=== PATIENT | female | born 1950 | race African-American/Black ===

== ENCOUNTER 2019-02-05 23:17 | Inpatient (IN) | payer MEDICARE ==
[~2019-02-05] VITALS: Ht 160 cm; Wt 88.6 kg
[2019-02-05] MEDS ORDERED: ASPIRIN 81 MG TAB.CHEW PO ONE (23:45)
--- NOTE | 2019-02-06 00:05 | PHYS DOC ---
Adult General Chief Complaint Chief Complaint: CHEST PAIN HPI HPI 68-year-old female presents with chest pain. The patient was sleeping when she woke with central chest pressure and feeling like her heart was beating very fast. This occurred around 10:30 PM. It is now 11:45. The patient states the pain was a 10 out of 10 at the time, but has subsided to a 4 out of 10. He does not remember if she was short of breath. She denies diaphoresis. She checked her blood sugar before she came to the ER and it was over 300. She gave herself 45 units of insulin. The patient has a history of hyperlipidemia, hypertension, diabetes insulin-dependent. No cardiac history. No stress test or cardiac catheter within the last year. Patient denies fever or chills. Review of Systems Review of Systems Constitutional: Denies fever or chills [] Eyes: Denies change in visual acuity, redness, or eye pain [] HENT: Denies nasal congestion or sore throat [] Respiratory: Denies cough or shortness of breath [] Cardiovascular: No additional information not addressed in HPI [] GI: Denies abdominal pain, nausea, vomiting, bloody stools or diarrhea [] : Denies dysuria or hematuria [] Musculoskeletal: Denies back pain or joint pain [] Integument: Denies rash or skin lesions [] Neurologic: Denies headache, focal weakness or sensory changes [] Endocrine: Denies polyuria or polydipsia [] All other systems were reviewed and found to be within normal limits, except as documented in this note. Current Medications Current Medications Current Medications Medications (Trade) Dose Ordered Sig/[facility] Start Time Stop Time Status Last Admin Dose Admin Aspirin (Children'S Aspirin) 324 mg 1X ONCE 02/05/19 23:45 02/05/19 23:46 UNV Allergies Allergies Allergies Uncoded Allergies Type Severity Reaction Last Updated Verified ANTIBIOTIC Allergy Unknown 01/15/15 Physical Exam Physical Exam Constitutional: Well developed, morbid obesity, well nourished, no acute distress, non-toxic appearance. [] HENT: Normocephalic, atraumatic, bilateral external ears normal, oropharynx moist, no oral exudates, nose normal. [] Eyes: PERRLA, EOMI, conjunctiva normal, no discharge. [] Neck: Normal range of motion, no tenderness, supple, no stridor. [] Cardiovascular:Heart rate regular rhythm, no murmur [] Lungs & Thorax: Bilateral breath sounds clear to auscultation [] Abdomen: Bowel sounds normal, soft, no tenderness, no masses, no pulsatile masses. [] Skin: Warm, dry, no erythema, no rash. [] Back: No tenderness, no CVA tenderness. [] Extremities: No tenderness, no cyanosis, no clubbing, ROM intact, no edema. [] Neurologic: Alert and oriented X 3, normal motor function, normal sensory function, no focal deficits noted. [] Psychologic: Affect normal, judgement normal, mood normal. [] EKG EKG Sinus rhythm, rate 97, normal axis, no ST elevations or depressions.[] Radiology/Procedures Radiology/Procedures [] Impressions: Chest x-ray preliminary interpretation: No acute cardiopulmonary process. Course & Med Decision Making Course & Med Decision Making Pertinent Labs and Imaging studies reviewed. (See chart for details) The patient's EKG is unremarkable. Her troponin is negative. Her labs are significant for an elevated blood sugar and a Cr of 1.6. We will give her 1L of normal saline and then reassess her BS. Her heart score is 5. I have advised the patient that she should be admitted to hospital for troponin trending and further management of her diabetes. She has reluctantly agreed. I spoke with Dr. Herrera and he has accepted the patient for admission. [] Dragon Disclaimer Dragon Disclaimer This electronic medical record was generated, in whole or in part, using a voice recognition dictation system. The HEART Score for CP Pts HEART Score for Chest Pain: HEART Score for Chest Pain Response (Comments) Value History Moderately Suspicious 1 ECG Normal 0 Age > 65 2 Risk Factors >3 Risk Factors or Hx CAD 2 Troponin < Normal Limit 0 Total 5 Risk Factors: Risk Factors: DM, Current or recent (<one month) smoker, HTN, HLP, family history of CAD, obesity. Risk Scores: Score 0 - 3: 2.5% MACE over next 6 weeks - Discharge Home Score 4 - 6: 20.3% MACE over next 6 weeks - Admit for Clinical Observation Score 7 - 10: 72.7% MACE over next 6 weeks - Early Invasive Strategies Departure Departure: Impression: Primary Impression: Chest pain Additional Impression: Hyperglycemia due to type 2 diabetes mellitus Disposition: ADMITTED INPATIENT Admitting Physician: Rosa Herrera Condition: STABLE Referrals: MAXINE ECKERT MD (PCP) Problem Qualifiers Primary Impression: Chest pain Chest pain type: precordial pain Qualified Codes: R07.2 - Precordial pain Additional Impression: Hyperglycemia due to type 2 diabetes mellitus 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
[2019-02-06 00:10] LABS: BASO % 1 % (0-3); EOS # 0.7 x10^3/uL (0.0-0.7); EOS % 6 % (0-3); HEMATOCRIT 38.6 % (36.0-47.0); HEMOGLOBIN 12.9 g/dL (12.0-15.5); LYMPH # 3.3 x10^3/uL (1.0-4.8); LYMPH % 31 % (24-48); MEAN CORPUSCULAR HEMOGLOBIN 32 pg (25-35); MEAN CORPUSCULAR HGB CONC 34 g/dL (31-37); MEAN CORPUSCULAR VOLUME 95 fL (79-100); MONO # 1.1 x10^3/uL (0.0-1.1); MONO % 10 % (0-9); NEUT # 5.4 x10^3uL (1.8-7.7); NEUT % 52 % (31-73); PLATELET COUNT 303 x10^3/uL (140-400); RED BLOOD COUNT 4.05 x10^6/uL (3.50-5.40); RED CELL DISTRIBUTION WIDTH 13.3 % (11.5-14.5); WHITE BLOOD COUNT 10.5 x10^3/uL (4.0-11.0)
[2019-02-06 00:34] LABS: ALBUMIN 3.7 g/dL (3.4-5.0); ALBUMIN/GLOBULIN RATIO 0.9 (1.0-1.7); CALCIUM 9.9 mg/dL (8.5-10.1); CREATININE 1.6 mg/dL (0.6-1.0); POTASSIUM 4.1 mmol/L (3.5-5.1); TOTAL BILIRUBIN 0.2 mg/dL (0.2-1.0); TOTAL PROTEIN 7.8 g/dL (6.4-8.2)
[2019-02-06] MEDS ORDERED: IV NORMAL SALINE 1,000ML 1,000 ML IV ONE (00:45)
[2019-02-06] MEDS ORDERED: NITROGLYCERIN SUBLINGUAL 0.4 MG BOTTLE OF 25. SL PRN (01:00)
[2019-02-06] MEDS ORDERED: ONDANSETRON PF 4 MG/2 ML VIAL. IV PRN (01:00)
[2019-02-06] MEDS ORDERED: INSULIN REGULAR 100 UNIT/ML 3ML VIAL. IV ONE (02:30)
[2019-02-06] MEDS ORDERED: INSULIN LISPRO 300 UNITS/3 ML VIAL. SQ SCH (02:45)
--- NOTE | 2019-02-06 02:45 | NUR ---
ADMISSION: The patient, FAITH BUSTILLOS, 68 y/o, F admitted by MARY HOPKINS MD, was given written information regarding hospital policies, unit procedures and contact persons. Pt arrived to room 123 via gurney, accompanied [facility], granddaughter, and nursing sup. Pt able to amb from gurney to bed, steady gait noted. Pt c/o being woken up due to central chest pain that radiated through to her bilateral shoulder blades, rated 8/10. Denies current CP. Pt also a type II diabetic with a blood glucose sensor applied to her left upper arm, reports blood sugars have been elevated in the 200-300's range over the past day, despite increased insulin admin. Pt denies and N/V/D or recent illness. Pt reports she has followed with Dr. Jiang, [facility]'s cardiology, but has not been in over a year. Will consult [facility] Cardiology in AM. Reviewed PMH and home meds with pt. Declines flu vaccine. POC and unit routines discussed, pt v/u. Call light in reach. Valuables were checked and logged. Left in room with patient.
[2019-02-06 02:53] VITALS: BP 138/76
[2019-02-06 03:06] LABS: BILIRUBIN,URINE NEG (NEG); CLARITY,URINE CLEAR; COLOR,URINE YELLOW; GLUCOSE,URINE 500 mg/dL (NEG); NITRITE,URINE NEG (NEG); UROBILINOGEN,URINE 0.2 mg/dL (0.2 mg/dL)
[2019-02-06 03:07] LABS: BACTERIA,URINE 0 /HPF (0-FEW); RBC,URINE 0 /HPF (0-2); SQUAMOUS EPITHELIAL CELL,UR OCC /LPF
[2019-02-06] MEDS ORDERED: DEXTROSE 50% 25 GM / 50ML DISP.SYRIN. IV PRN (03:15)
[2019-02-06] MEDS ORDERED: ASPI-630 PO (03:21)
[2019-02-06] MEDS ORDERED: MAGN250T9 PO (03:21)
[2019-02-06] MEDS ORDERED: LISI40TA PO (03:21)
[2019-02-06] MEDS ORDERED: ATOR40TA59 PO (03:21)
[2019-02-06] MEDS ORDERED: OMEG-33 PO (03:21)
[2019-02-06] MEDS ORDERED: MV,1TABL3 PO (03:21)
[2019-02-06] MEDS ORDERED: CARV6.25 PO (03:21)
[2019-02-06] MEDS ORDERED: AMLO10TA8 PO (03:21)
[2019-02-06] MEDS ORDERED: INSULIN LISPRO 300 UNITS/3 ML VIAL. SQ ONE (03:30)
[2019-02-06] MEDS ORDERED: INSU100V31 SQ (03:51)
[2019-02-06] MEDS ORDERED: INSU100I30 SQ (03:51)
[2019-02-06 05:45] VITALS: BP 137/69
--- NOTE | 2019-02-06 06:12 | RAD ---
EXAM: AP View of the chest DATE: 02/05/2019 11:37 PM INDICATION: Pain, injury COMPARISON: No Prior FINDINGS: The heart is not enlarged. Mediastinal and hilar contours are normal. No focal parenchymal airspace opacity. No pleural effusion or pneumothorax. IMPRESSION: 1. No radiographic evidence for acute cardiopulmonary process. Electronically signed by: Kael Juarez MD (02/06/2019 6:09 AM) [facility]
--- NOTE | 2019-02-06 06:17 | NUR ---
Cardiology consult called to Dr. Alvarenga. L/M with answering service, awaiting call back.
--- NOTE | 2019-02-06 07:53 | PDOC2 ---
MADELINE PARRA NURSES ASSISTANT 02/06/19 0753: CARDIAC CONSULT DATE OF CONSULT Date Of Consult DATE: 02/06/19 TIME: 07:49 REASON FOR CONSULT Reason for Consult Chest pain REFERRING PHYSICIAN Referring Physician Dr. Herrera SOURCE Source: Chart review, Patient HPI History of Present Illness This is a 68 yo female who presented secondary to central chest pain and palpitations. Patient reports she went to bed last night around 9pm. Woke up about 10:30 with pressure in her central chest. Felda like her was was beating fast and it was "going to burst". Pain was also across her back and in her bilateral shoulder. Associated with nausea. No shortness of breath, diaphoresis, or dizziness. No recent ROSE or chest pain upon exertion. Has had URI/cough recently. Pain resolved after about 45 minutes without intervention and has not returned. No h/o CAD. Has had a stress test previously, but has been many years prior. PAST MEDICAL HISTORY Cardiovascular: HTN, hyperipidemia Heme/Onc: Cancer (breast ) Musculoskeletal: Osteoarthritis Renal/: Chronic renal insuff Endocrine: Diabetes PAST SURGICAL HISTORY Past Surgical History: No pertinent history FAMILY HISTORY Family History: Coronary Artery Disease (son), Diabetes, Hypertension SOCIAL HISTORY Smoke: No ALCOHOL: none Drugs: None Lives: with Family CURRENT MEDICATIONS Current Medications Current Medications Aspirin (Children'S Aspirin) 324 mg 1X ONCE PO Last administered on 02/06/19at 00:40; Start 02/05/19 at 23:45; Stop 02/06/19 at 00:23; Status DC Sodium Chloride 1,000 ml @ 1,000 mls/hr 1X ONCE IV Last administered on 02/06/19at 00:51; Start 02/06/19 at 00:45; Stop 02/06/19 at 01:44; Status DC Ondansetron HCl (Zofran) 4 mg PRN Q4HRS PRN IV NAUSEA/VOMITING; Start 02/06/19 at 01:00; Stop 02/07/19 at 00:59 Nitroglycerin (Nitrostat) 0.4 mg PRN Q5MIN PRN SL CHEST PAIN; Start 02/06/19 at 01:00; Stop 02/07/19 at 00:59 Insulin Human Regular (HumuLIN R VIAL) 20 unit 1X ONCE IV ; Start 02/06/19 at 02:30; Stop 02/06/19 at 02:37; Status DC Insulin Human Lispro (HumaLOG) 20 units 1X SQ Last administered on 02/06/19at 02:38; Start 02/06/19 at 02:45; Stop 02/06/19 at 03:28; Status DC Dextrose (Dextrose 50%-Water Syringe) 12.5 gm PRN Q15MIN PRN IV SEE COMMENTS; Start 02/06/19 at 03:15 Insulin Human Lispro (HumaLOG) 20 units 1X ONCE SQ ; Start 02/06/19 at 03:30; Stop 02/06/19 at 03:31; Status DC Amlodipine Besylate (Norvasc) 10 mg DAILY PO ; Start 02/06/19 at 09:00 Aspirin (Children'S Aspirin) 162 mg DAILYWBKFT PO ; Start 02/06/19 at 08:00 Carvedilol (Coreg) 6.25 mg BIDWMEALS PO ; Start 02/06/19 at 08:00 Insulin Human Lispro (HumaLOG) 40 units TIDWMEALS SQ ; Start 02/06/19 at 08:00 Non-Formulary Medication (Insulin Degludec (Tresiba Flextouch U-100)) 120 unit QHS SQ ; Start 02/06/19 at 21:00; Status UNV Magnesium Oxide (Magnesium Oxide) 200 mg BID PO ; Start 02/06/19 at 09:00 Multivitamins/ Calcium (Thera-M Plus) 1 tab DAILY PO ; Start 02/06/19 at 09:00 Atorvastatin Calcium (Lipitor) 40 mg QHS PO ; Start 02/06/19 at 21:00 Lisinopril (Prinivil) 40 mg DAILY PO ; Start 02/06/19 at 09:00 Fish Oil (Fish Oil) 1,000 mg DAILY PO ; Start 02/06/19 at 09:00 Active Scripts Active Reported Tresiba Flextouch U-100 (Insulin Degludec) 100 Unit/1 Ml Insuln.pen 120 Unit SQ QHS Novolog (Insulin Aspart) 100 Unit/1 Ml Vial 40 Unit SQ TIDWMEALS Aspirin 81 Mg Tab.chew 162 Mg PO DAILY Mcdonough 3 1,000 Mg Softgel (Mcdonough-3 Fatty Acids/Fish Oil) 1 Each Capsule 1 Each PO DAILY Geritol Complete Tablet (Mv, Min #36/Iron,Carbonyl/Fa) 1 Each Tablet 1 Each PO DAILY Magnesium Oxide 250 Mg Tablet 1 Tab PO BID 30 Days Atorvastatin Calcium 40 Mg Tablet 1 Tab PO QHS Coreg (Carvedilol) 6.25 Mg Tablet 6.25 Mg PO BIDWMEALS Lisinopril 40 Mg Tablet 1 Tab PO DAILY Amlodipine Besylate 10 Mg Tablet 1 Tab PO DAILY ALLERGIES Allergies: Coded Allergies: hydromorphone (Verified Allergy, Severe, HALUC, 02/06/19) HALUCINATIONS ROS Review of Systems 14 point ROS conducted with pertinent positives noted above in HPI. PHYSICAL EXAM General: Alert, Oriented X3, Cooperative, No acute distress HEENT: Atraumatic, Mucous membr. moist/pink Lungs: Clear to auscultation, Normal air movement Heart: Regular rate Abdomen: Soft, No tenderness Extremities: No edema, Normal pulses Skin: No rashes, No breakdown Neuro: Normal speech, Sensation intact Psych/Mental Status: Mental status NL, Mood NL MUSCULOSKELETAL: Osteoarthritic changes both hands VITALS Vital Signs Vital Signs Date Time Temp Pulse Resp B/P (MAP) Pulse Ox O2 Delivery O2 Flow Rate FiO2 02/06/19 05:45 97.7 89 18 137/69 (91) 96 Room Air LABS LABS Laboratory Tests Test 02/05/19 23:40 02/06/19 00:49 02/06/19 01:45 02/06/19 03:15 White Blood Count 10.5 x10^3/uL (4.0-11.0) Red Blood Count 4.05 x10^6/uL (3.50-5.40) Hemoglobin 12.9 g/dL (12.0-15.5) Hematocrit 38.6 % (36.0-47.0) Mean Corpuscular Volume 95 fL (79-100) Mean Corpuscular Hemoglobin 32 pg (25-35) Mean Corpuscular Hemoglobin Concent 34 g/dL (31-37) Red Cell Distribution Width 13.3 % (11.5-14.5) Platelet Count 303 x10^3/uL (140-400) Neutrophils (%) (Auto) 52 % (31-73) Lymphocytes (%) (Auto) 31 % (24-48) Monocytes (%) (Auto) 10 % (0-9) Eosinophils (%) (Auto) 6 % (0-3) Basophils (%) (Auto) 1 % (0-3) Neutrophils # (Auto) 5.4 x10^3uL (1.8-7.7) Lymphocytes # (Auto) 3.3 x10^3/uL (1.0-4.8) Monocytes # (Auto) 1.1 x10^3/uL (0.0-1.1) Eosinophils # (Auto) 0.7 x10^3/uL (0.0-0.7) Basophils # (Auto) 0.0 x10^3/uL (0.0-0.2) Sodium Level 139 mmol/L (136-145) Potassium Level 4.1 mmol/L (3.5-5.1) Chloride Level 101 mmol/L (98-107) Carbon Dioxide Level 25 mmol/L (21-32) Anion Gap 13 (6-14) Blood Urea Nitrogen 28 mg/dL (7-20) Creatinine 1.6 mg/dL (0.6-1.0) Estimated GFR (Cockcroft-Gault) 39.0 BUN/Creatinine Ratio 18 (6-20) Glucose Level 280 mg/dL (70-99) Calcium Level 9.9 mg/dL (8.5-10.1) Total Bilirubin 0.2 mg/dL (0.2-1.0) Aspartate Amino Transf (AST/SGOT) 27 U/L (15-37) Alanine Aminotransferase (ALT/SGPT) 60 U/L (14-59) Alkaline Phosphatase 99 U/L (46-116) Troponin I Quantitative < 0.017 ng/mL (0-0.055) 0.047 ng/mL (0-0.055) PN-Yhs-Y-Type Natriuretic Peptide 25 pg/mL (0-124) Total Protein 7.8 g/dL (6.4-8.2) Albumin 3.7 g/dL (3.4-5.0) Albumin/Globulin Ratio 0.9 (1.0-1.7) Glucose (Fingerstick) 294 mg/dL (70-99) Urine Collection Type Unknown Urine Color Yellow Urine Clarity Clear Urine pH 5.5 Urine Specific [place] 1.015 Urine Protein 100 mg/dl (NEG-TRACE) Urine Glucose (UA) 500 mg/dL (NEG) Urine Ketones (Stick) Neg mg/dL (NEG) Urine Blood Trace (NEG) Urine Nitrite Neg (NEG) Urine Bilirubin Neg (NEG) Urine Urobilinogen Dipstick 0.2 mg/dL (0.2 mg/dL) Urine Leukocyte Esterase Trace (NEG) Urine RBC 0 /HPF (0-2) Urine WBC 1-4 /HPF (0-4) Urine Squamous Epithelial Cells Occ /LPF Urine Bacteria 0 /HPF (0-FEW) Test 02/06/19 05:38 02/06/19 07:34 Glucose (Fingerstick) 250 mg/dL (70-99) 250 mg/dL (70-99) ASSESSMENT/PLAN Assessment/Plan 1. Chest pain, mixed features. Second trop mildly elevated at 0.047. 2. Palpitations; no tachyarrhythmias noted on tele thus far 3. Hypertension 4. Hyperlipidemia 5. Diabetes, II 6. CKD Recommendations Trend trop Lipids, TSH Echo to assess LV systolic function Needs further ischemic workup given symptomatology and risk factors. Would prefer less invasive approach. Will make further recommendations pending 3rd troponin and echo. BONIFACIO ROQUE MD 02/06/19 1912: CARDIAC CONSULT ASSESSMENT/PLAN Assessment/Plan Pt. seen and examined. 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 68 y.o woman presenting with chest pain with mixed features as noted above. Exam wnl. Echo wnl. EKG is non-ischemic Trop is mildly elevated in the setting of HTN and CKD. In light of above low risk findings, will plan for expedited outpt ischemic evaluation. Will start pt. on metoprolol, asa, imdur and statin therapy. Discussed alarm findings with patient and reasons to return to ER. MADELINE PARRA APRN Feb 06, 2019 07:53 BONIFACIO ROQUE MD Feb 06, 2019 19:12
[2019-02-06] MEDS ORDERED: ASPIRIN 81 MG TAB.CHEW PO SCH (08:00)
[2019-02-06] MEDS: CARVEDILOL 6.25 MG TABLET PO SCH ×2 (08:08→17:18)
[2019-02-06] MEDS: INSULIN LISPRO 300 UNITS/3 ML VIAL. SQ SCH ×3 (08:17→17:29)
[2019-02-06] MEDS ORDERED: MULTIVITAMIN with MINERAL TABLET. PO SCH (09:00)
[2019-02-06] MEDS ORDERED: LISINOPRIL 20 MG TABLET PO SCH (09:00)
[2019-02-06] MEDS ORDERED: MAGNESIUM OXIDE 400 MG TABLET PO SCH (09:00)
[2019-02-06] MEDS ORDERED: OMEGA-3 FATTY ACIDS/FISH OIL 1,000 MG CAPSULE. PO SCH (09:00)
[2019-02-06] MEDS ORDERED: amLODIPine BESYLATE 10 MG TABLET PO SCH (09:00)
--- NOTE | 2019-02-06 09:00 | NUR ---
NURSING NOTE PT WAS GIVEN MORNING MEDICATIONS AND HER BREAKFAST TRAY. PT WAS SEEN BY CARDIOLOGY AND THEY WANT TO HOLD HER WATER AND TRAY FOR NOW PENDING 3RD TROPONIN FOR POSSIBLE TRANSFER BASED ON RESULTS. PT WAS ALREADY GIVEN INSULIN AND ONLY HAD A FEW BITES OF BREAKFAST. BLOOD SUGAR RECHECKED AT 0845 AND WAS 224. WILL CONTINUE TO MONITOR. SELIN SCHMITT.
[2019-02-06 10:44] VITALS: BP 126/73
--- NOTE | 2019-02-06 11:14 | NUR ---
NURSING NOTE CRITICAL RESULTS PT 3RD TROPONIN ELEVATED AT 0.075. MADELINE NOVELTIES SALES REPRESENTATIVE NOTIFIED AND SHE WILL SPEAK WITH DR ROQUE TO SEE ABOUT TRANSFERRING TO [facility] TODAY. PT IS NPO PER MADELINE. DR HOPKINS AWARE OF PLAN. SELIN SCHMITT.
[2019-02-06 13:28] LABS: THYROID STIM HORMONE (TSH) 4.379 uIU/mL (0.358-3.740)
[2019-02-06 14:35] VITALS: BP 128/72
--- NOTE | 2019-02-06 15:04 | CARD ---
MR#: [id number] Date of Study: 02/06/2019 Ordering Physician: MADELINE PARRA, Referring Physician: MADELINE PARRA, Tech: Anel Suresh SUSANA APPROVED REPORT EXAM: Two-dimensional and M-mode echocardiogram with Doppler and color Doppler. Other Information Quality : Good INDICATION Chest Pain 2D DIMENSIONS RVDd2.5 (2.9-3.5cm)Left Atrium(2D)3.5 (1.6-4.0cm) IVSd1.0 (0.7-1.1cm)Aortic Root(2D)2.5 (2.0-3.7cm) LVDd4.5 (3.9-5.9cm)PWd0.9 (0.7-1.1cm) LVDs3.1 (2.5-4.0cm)FS (%) 30.5 % SV52.9 mlLVEF(%)58.2 (>50%) Aortic Valve AoV Peak Corey.143.0cm/sAoV VTI26.1cm AO Peak GR.8.2mmHgAO Mean GR.5mmHg COLEEN (VTI)1.90cm2 Mitral Valve MV E Qbvmbbli77.5cm/sMV DECEL RSNH168qg MV A Zpzmopoo90.4cm/sE/A Ratio0.9 LEFT VENTRICLE The left ventricle is normal size. There is normal left ventricular wall thickness. The left ventricu lar systolic function is normal and the ejection fraction is within normal range. The Ejection Fracti on is 55-60%. There is normal LV segmental wall motion. Transmitral Doppler flow pattern is Grade I-a bnormal relaxation pattern. RIGHT VENTRICLE The right ventricle is normal size. The right ventricular systolic function is normal. ATRIA The left atrium size is normal. The right atrium size is normal. The interatrial septum is intact wit h no evidence for an atrial septal defect or patent foramen ovale as noted on 2-D or Doppler imaging. AORTIC VALVE The aortic valve is calcified but opens well. Doppler and Color Flow revealed no significant aortic r egurgitation. There is no significant aortic valvular stenosis. MITRAL VALVE The mitral valve is calcified but opens well. There is no evidence of mitral valve prolapse. There is no mitral valve stenosis. Doppler and Color-flow revealed trace to mild mitral regurgitation. TRICUSPID VALVE The tricuspid valve is normal in structure and function. Doppler and Color Flow revealed no tricuspid valve regurgitation noted. There is no tricuspid valve stenosis. PULMONIC VALVE The pulmonary valve is normal in structure and function. Doppler and Color Flow revealed trace pulmon ic valvular regurgitation. There is no pulmonic valvular stenosis. GREAT VESSELS The aortic root is normal in size. The ascending aorta is normal in size. The IVC is normal in size a nd collapses >50% with inspiration. PERICARDIAL EFFUSION There is no evidence of significant pericardial effusion. Critical Notification Critical Value: No <Conclusion> The left ventricle is normal size. The left ventricular systolic function is normal and the ejection fraction is within normal range. The Ejection Fraction is 55-60%. Doppler and Color Flow revealed no significant aortic regurgitation. There is no significant aortic valvular stenosis. Doppler and Color-flow revealed trace to mild mitral regurgitation. Doppler and Color Flow revealed no tricuspid valve regurgitation noted. Signed by : Brian Hargrove MD Electronically Approved : 02/06/2019 15:03:37
--- NOTE | 2019-02-06 15:55 | HP ---
ADMIT DATE: 02/05/2019 HISTORY OF PRESENT ILLNESS: The patient is a 68-year-old -Portuguese female patient who came to the Emergency Room with a complaint of chest pain. She was sleeping when she woke up with central chest pressure, feeling like her heart was beating very fast. This occurred around 10:30 p.m. and when she arrived at around 11:45, the patient stated her pain was 10/10 at the time, but has subsided about 4/10. She does not remember if she was short of breath. She denies diaphoresis. She checked her blood sugar before she came into the Emergency Room, was 300. She gave herself 45 units of insulin. The patient has a history of hyperlipidemia, has multiple risk factors for coronary artery disease, but she has never had any cardiac workup. She was evaluated in the Emergency Room, has had an EKG, which showed that she was in sinus rhythm at 97 beats per minute with normal axis, no ST-T elevation or depression. Her first set of cardiac enzyme was less than 0.017. The patient therefore was admitted to do 2 more sets of cardiac enzyme and to check her fasting lipid profile and consult the cardiology team. PAST MEDICAL HISTORY: Significant for hypertension, type 2 diabetes, hyperlipidemia, chronic kidney disease, breast cancer and an episode of TIA before. PAST SURGICAL HISTORY: Significant for tubal ligation and colonoscopy. ALLERGIES: She is allergic to TRULICITY and DILAUDID. MEDICATIONS: She is currently on following medications: She is on atorvastatin calcium 40 mg at bedtime, omega-3 fatty acids 1000 mg daily, carvedilol 6.25 mg twice a day with meals, amlodipine besylate 10 mg daily, lisinopril 40 mg once a day, aspirin 81 mg once a day, magnesium oxide 250 mg twice a day and NovoLog insulin 40 units before meals and Tresiba FlexTouch 120 units at bedtime. She is on multivitamin with mineral 1 tablet once a day. FAMILY HISTORY: She has 5 sisters, 2 older and 3 younger, one older sister and one younger sister have diabetes. Her father at the age of 54 because of a bleeding ulcer; however, he sustained myocardial infarction prior to that. Her mother at the age of 70 as a complication of end-stage renal disease, on hemodialysis. She had hypertension and cerebrovascular accident. SOCIAL HISTORY: She is , has 2 sons, 1 is 48 years old and sustained myocardial infarction last year, the other one has juvenile diabetes. She has never smoked, does not drink alcohol. 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 REVIEW OF SYSTEMS: The patient denied any blurring of vision, cataract, glaucoma or macular degeneration. Denied any earache, tinnitus or sensorineural deafness. Denied any nosebleeds, stuffy nose or postnasal drip. Denied any sore throat, sore tongue, toothache, hoarseness of voice or difficulty swallowing. Did complain of nausea, but no vomiting. Denied any diarrhea or constipation. Denied any hematemesis, melena or hematochezia. Denied any dysuria, frequency or hematuria. Did complain of chest pain, but no shortness of breath, orthopnea, or paroxysmal nocturnal dyspnea. She denied any dizziness, lightheadedness, or vertigo. Denied any chills, rigors or fever. PHYSICAL EXAMINATION: GENERAL: On arrival to the Emergency Room, she looked well and was clearly in no apparent respiratory distress. No pallor, jaundice, cyanosis or thyromegaly. No jugular venous distention or limb edema. VITAL SIGNS: Her heart rate was 92, blood pressure was 160/72, her temperature was 98, respiratory rate was 18 and oxygen saturation was 98%. HEAD, EYES, EARS, NOSE AND THROAT: Showed normocephalic, atraumatic. NECK: Supple. HEART: Showed normal first and second heart sounds. No gallop or murmur. CHEST: Clear to auscultation. No crepitation or rhonchi. ABDOMEN: Distended, soft, nontender. No guarding or rigidity. No organomegaly. All hernial orifices intact. Bowel sounds normal. NEUROLOGIC: She was awake, alert, responding appropriately. All cranial nerves intact. EXTREMITIES: She moves extremities without difficulty. She ambulates without assistance or assistive devices. LABORATORY DATA: On arrival, her serum sodium was 139, potassium 4.1, chloride 101, bicarbonate 25, anion gap of 13, BUN 28, creatinine 1.6, estimated GFR was 39 mL per minute. Her glucose was 280, calcium was 9.9. Total bilirubin, AST, ALT, alkaline phosphatase were normal. Total protein 7.8, albumin was 3.7. Her first set of cardiac enzymes showed troponin to be less than 0.017. Her urinalysis was essentially unremarkable except for large amount of glucose and small amount of protein. There was trace leukocyte esterase, 0 rbc's, 1-4 wbc's, and no bacteria. Her chest x-ray showed the patient's heart is not enlarged. Mediastinal and hilar contours are normal. No focal parenchymal airspace opacity or pleural effusion or pneumothorax. ASSESSMENT AND PLAN: This is a 68-year-old who came in with chest pain with normal initial troponin. We will do 2 more sets of cardiac enzyme and also check her fasting lipid profile, consult the case liner. MARY HOPKINS MD DR: SABA/romina JOB#: [id number] / [id number]
[2019-02-06 16:35] LABS: CREATININE 1.6 mg/dL (0.6-1.0)
--- NOTE | 2019-02-06 16:53 | NUR ---
NURSING NOTE CRITICAL RESULTS PT TROP 0.075. DR HOPKINS NOTIFIED. SPOKE WITH MADELINE FOREMAN, SHE IS GOING TO SPEAK WITH DR Arteaga AND CALL BACK WITH PLAN OF CARE. SELIN SCHMITT.
--- NOTE | 2019-02-06 17:02 | NUR ---
NURSING NOTE SPOKE WITH MADELINE FOREMAN, PT CAN GO HOME WITH OUTPATIENT STRESS TEST. PT NEEDS TO BE ON DAILY ASA, STATIN, BETA LUZ. ORDER RECEIVED FOR IMDUR 30MG DAILY WITH 2 REFILLS. SELIN SCHMITT.
[2019-02-06 17:18] VITALS: BP 128/72
[2019-02-06] MEDS ORDERED: ISOS30TA4 PO (17:33)
--- NOTE | 2019-02-06 18:04 | NUR ---
NURSING NOTE DISCHARGE PER MADELINE, PT HAS BEEN DISCHARGED HOME VIA AMBULATION ACCOMPANIED BY FAMILY. PT HAS BEEN GIVEN DISCHARGE INFORMATION WRITTEN AND VERBAL. PRESCRIPTION CALLED IN TO [facility] FOR [facility] PER DR ROQUE. PT IS TO FOLLOW UP WITH CARDIOLOGY FOR OUTPATIENT STRESS TEST. PT HAS NO QUESTIONS AT THIS TIME. NO COMPLICATIONS. SELIN SCHMITT.
[2019-02-06] MEDS ORDERED: ATORVASTATIN CALCIUM 20 MG TABLET PO SCH (21:00)
[2019-02-06] MEDS ORDERED: INSULIN GLARGINE SYRINGE. SQ SCH (21:00)
[2019-02-06] MEDS ORDERED: INSULIN DEGLUDEC 120 UNIT SQ SCH (21:00)
[2019-02-07] MEDS ORDERED: ISOSORBIDE MONONITRATE ER 30 MG TAB.ER.24H PO SCH (09:00)
--- NOTE | 2019-02-08 08:08 | EKG ---
[address] [address] Test Date: 2019-02-03 Test Time: 14:16:34 Pat Name: FAITH BUSTILLOS Department: Room: 123 A Gender: F Research Worker Encyclopedia: : 1950 Requested By: ENA MISHRA Order Number: [id number] Reading MD: Chris Alvarenga MD Measurements Intervals [place] Rate: 79 P: 90 SC: 140 QRS: 41 QRSD: 92 T: 37 QT: 432 QTc: 497 Interpretive Statements SINUS RHYTHM LVH WITH REPOLARIZATION ABNORMALITY PROLONGED QT Electronically Signed On 03-19-2019 14:39:07 ENVIRONMENTAL REMEDIATION ENGINEER by Chris Alvarenga MD
--- NOTE | 2019-02-08 08:51 | EKG ---
[address] [address] Test Date: 2019-02-05 Test Time: 23:40:40 Pat Name: FAITH BUSTILLOS Department: Room: 123 A Gender: F Recycling Manager: : 1950 Requested By: MARY HOPKINS Order Number: [id number] Reading MD: Chris Alvarenga MD Measurements Intervals [place] Rate: 97 P: -11 AR: 156 QRS: 34 QRSD: 82 T: 19 QT: 342 QTc: 438 Interpretive Statements SINUS RHYTHM Electronically Signed On 02-19-2019 15:13:34 CAD DRAFTSMAN by Chris Alvarenga MD
== END 2019-02-06 18:11 | disposition home or self-care (01) | DRG 206 ==
LOC: ER 23:17 → 1 SOUTH 23:55
PROVIDERS: ADMIT Internal Medicine; ATTEND Internal Medicine
DX: M94.0 Chondrocostal junction syndrome [Tietze] (principal); E11.22 Type 2 diabetes mellitus with diabetic chronic kidney disease; E11.65 Type 2 diabetes mellitus with hyperglycemia; E78.5 Hyperlipidemia, unspecified; I12.9 Hypertensive chronic kidney disease with stage 1 through stage 4 chronic kidney disease, or unspecified chronic kidney disease; I25.10 Atherosclerotic heart disease of native coronary artery without angina pectoris; M19.90 Unspecified osteoarthritis, unspecified site; I25.2 Old myocardial infarction; N18.9 Chronic kidney disease, unspecified; Z79.4 Long term (current) use of insulin; Z82.3 Family history of stroke; Z82.49 Family history of ischemic heart disease and other diseases of the circulatory system; Z83.3 Family history of diabetes mellitus; Z85.3 Personal history of malignant neoplasm of breast; Z86.73 Personal history of transient ischemic attack (TIA), and cerebral infarction without residual deficits; Z98.51 Tubal ligation status
CPT/HCPCS: 36415; 71045; 80053; 80061; 81001; 82565; 82947; 83880; 84443; 84484; 85025; 87086; 93005; 93306; 96360; 96372; J1815; 99285-25; J7030

== ENCOUNTER → 2019-02-12 | Outpatient (CLI) | payer MEDICARE ==
[2019-02-06 17:18] VITALS: BP 128/72
[~2019-02-12] MED LIST: AMLO10TA8 PO; ASPI-630 PO; ATOR40TA59 PO; CARV6.25 PO; INSU100I30 SQ; INSU100V31 SQ; ISOS30TA4 PO; LISI40TA PO; MAGN250T9 PO; MV,1TABL3 PO; OMEG-33 PO; REGADENOSON 0.4 MG/5 ML DISP.SYRIN. IV ONE
--- NOTE | 2019-02-12 11:49 | RAD ---
MR#: [id number] Date of Study: 02/12/2019 Ordering Physician: BONIFACIO ROQUE, Referring Physician: [place] PELLETIER Tech: RT Alix Baires) (N) APPROVED REPORT Test Type: Pharmacological Stress Nurse/Tech: RT Viry (Daiana) (N) Test Indications: chest pain Cardiac History: none Medications: see EHR Medical History: hypertension, diabetic Resting ECG: sinus rythm Resting Heart Rate: 73 bpm Resting Blood Pressure: 157/70mmHg Pretest Chest Pain: None Nurse/Tech Notes Consent: The procedure was explained to the patient in lay terms. Informed consent was witnessed. Alex eout was entered into [employer] History and Stress Test performed by RT Alix Baires) (N) Pharm. Details Pharmacologic stress testing was performed using 0.4mg per 5ml of regadenoson given intravenously ove r 7-10 seconds. POST EXERCISE Reason for Termination: Infusion complete Max HR: 101 bpm Max Blood Pressure: 147/65mmHg INTERPRETATION Stress EKG Conclusion: The resting EKG shows a sinus rhythm. The stress EKG shows no significant changes from baseline. No EKG evidence of stress-induced ischemia. Imaging Protocol IMAGE PROTOCOL: Rest Tc-99m/stress Tc-99m 1 day Rest: Stress: Viability: Radiopharm.Tc99m OwcvabgdvLr12m Sestamibi Dose10.4mCi 32mCi Duration 15min. 10min. Img Date 02/12/2019 02/12/2019 Inj-Img Kxkx81coh. 60min. Rest Admin Site:IV - Right AntecubitalAdministrator: RT Viry (Daiana)(N) Stress Admin Site: IV - Right AntecubitalAdministrator: RT Alix Baires)(N) STRESS DATA End Diast. Vol.106.0mlAv. Heart Rate76.0bpm End Syst. Vol.37.0mlCO Index BSA5.2L/min Myocardial Msch933.0gEject. Ltfaiquq78.0% Stress Rates Pk. Fill Rate2.43EDV/secLVtime Pk. Fill 97.47msec Pk. Empty Rate4.02ESV/secLVtime Pk. Xumau458.35msec 1/3 Pk. Fill1.65EDV/sec Stress Scores Regional WT1.00Summed WT20.00 Regional WM0.00Summed WM9.00 LV Perfusion The stress scans show no significant defects. The rest scans show no significant defects. Nuclear imaging shows no reversible ischemia or infarct. Wall Motion Left ventricular systolic function is intact with an ejection fraction of 57%. LV Perf. Quant 17 Seg. SSS4.00 17 Seg. SRS1.00 17 Seg. SDS3.00 Stress Defect Extent (% LAD)0.00Rest Defect Extent (% LAD)0.00Rev. Defect Extent (% LAD)0.00 Stress Defect Extent (% LCX) 40.00Rest Defect Extent (% LCX)13.80Rev. Defect Extent (% LCX)27.50 Stress Defect Extent (% RCA)0.00Rest Defect Extent (% RCA)0.00Rev. Defect Extent (% RCA)0.00 Stress Defect Extent (% KARY)7.00Rest Defect Extent (% KARY)2.40Rev. Defect Extent (% KARY)4.80 Conclusion 1. No EKG evidence of stressed induced ischemia. 2. Nuclear imaging shows no reversible ischemia or infarct. 3. Left ventricular systolic function is intact with an ejection fraction of 57%. 4. Low risk Lexiscan nuclear stress test. Signed by : Brian Hargrove MD Electronically Approved : 02/12/2019 11:49:18
== END | disposition home or self-care (01) ==
LOC: NM 07:26
PROVIDERS: ATTEND Internal Medicine Cardiovascular Disease
DX: R07.9 Chest pain, unspecified (principal); I10 Essential (primary) hypertension; E11.9 Type 2 diabetes mellitus without complications; Z88.8 Allergy status to other drugs, medicaments and biological substances
CPT/HCPCS: 78452; 93017; A9500; J2785

== ENCOUNTER 2019-07-20 21:29 | Emergency (ER) | payer MEDICARE ==
[~2019-07-20] VITALS: Ht 160 cm; Wt 88.1 kg
[~2019-07-20 21:29] MED LIST changes: -REGADENOSON 0.4 MG/5 ML DISP.SYRIN. IV ONE
[2019-07-20] MEDS ORDERED: metformin (22:10)
--- NOTE | 2019-07-20 22:18 | PHYS DOC ---
Past History Past Medical History: Diabetes, Hypertension, Other Additional Past Medical Histor: STAGE 3 KIDNEY FAILURE Past Surgical History: No Surgical History Alcohol Use: None Drug Use: None General Adult EDM: Chief Complaint: LOWER EXTREMITY SWELLING HPI: HPI: 68-year-old female presents with left foot pain. She first noticed it on Monday, 4 days ago when it was tender walking. She noticed some mild swelling in the top of her foot. She presents tonight because she feels like the swelling got worse today. She has had a skin infection in the foot in the past. She denies fever chills. She does not feel like it is hot to the touch. She has no history of gout. She denies trauma or overuse. She has no other complaints at this time. Review of Systems: Review of Systems: Constitutional: Denies fever or chills Eyes: Denies change in visual acuity HENT: Denies nasal congestion or sore throat Respiratory: Denies cough or shortness of breath Cardiovascular: Denies chest pain or edema GI: Denies abdominal pain, nausea, vomiting, bloody stools or diarrhea : Denies dysuria Musculoskeletal: Left foot pain Integument: Denies rash Neurologic: Denies headache, focal weakness or sensory changes Endocrine: Denies polyuria or polydipsia Lymphatic: Denies swollen glands Psychiatric: Denies depression or anxiety Heart Score: Risk Factors: Risk Factors: DM, Current or recent (<one month) smoker, HTN, HLP, family history of CAD, obesity. Risk Scores: Score 0 - 3: 2.5% MACE over next 6 weeks - Discharge Home Score 4 - 6: 20.3% MACE over next 6 weeks - Admit for Clinical Observation Score 7 - 10: 72.7% MACE over next 6 weeks - Early Invasive Strategies Allergies: Allergies: Allergies Coded Allergies Type Severity Reaction Last Updated Verified hydromorphone Allergy Severe HALUC 07/20/19 Yes Physical Exam: PE: Constitutional: Well developed, well nourished, no acute distress, non-toxic appearance. [] HENT: Normocephalic, atraumatic, bilateral external ears normal, oropharynx moist, no oral exudates, nose normal. [] Eyes: PERRLA, EOMI, conjunctiva normal, no discharge. [] Neck: Normal range of motion, no tenderness, supple, no stridor. [] Cardiovascular:Heart rate regular rhythm, no murmur [] Lungs & Thorax: Bilateral breath sounds clear to auscultation [] Abdomen: Bowel sounds normal, soft, no tenderness, no masses, no pulsatile masses. [] Skin: Warm, dry, no erythema, no rash. [] Back: No tenderness, no CVA tenderness. [] Extremities: Mild tenderness and swelling of the dorsal left midfoot. Skin is not erythematous or warm. [] Neurologic: Alert and oriented X 3, normal motor function, normal sensory function, no focal deficits noted. [] Psychologic: Affect normal, judgement normal, mood normal. [] EKG: EKG: [] Radiology/Procedures: Radiology/Procedures: [] Course & Med Decision Making: Course & Med Decision Making Pertinent Labs and Imaging studies reviewed. (See chart for details) The patient's x-ray is negative for fracture. She does have some obvious arthritis on x-ray. This could be a flareup of her arthritis. I have advised conservative care such as ice, elevation, ibuprofen. She is stable for discharge at this time. [] Dragon Disclaimer: Dragon Disclaimer: This electronic medical record was generated, in whole or in part, using a voice recognition dictation system. Departure Departure: Impression: Primary Impression: Left foot pain Disposition: HOME/RESIDENCE PRIOR TO ADM Condition: STABLE Referrals: MAXINE ECKERT MD (PCP) Patient Instructions: Foot Contusion, [id number] ENA MISHRA DO July 20, 2019 22:18
[2019-07-20 22:50] VITALS: BP 128/72
--- NOTE | 2019-07-20 22:59 | RAD ---
Examination: 3 views of the left foot HISTORY: History of left foot pain, swelling COMPARISON: None available FINDINGS: The alignment of the tarsal bones, metatarsal phalange joints, interphalangeal joints grossly appears unremarkable. There is no acute fracture-dislocation identified. Mild soft tissue swelling identified dorsal to the right foot. Moderate joint space loss identified in the first MTP joint likely degenerative changes. Small posterior inferior calcaneal enthesophyte is identified. Small osteophyte arising from the superior aspect of the navicular bone. Impression: 1. Moderate degenerative changes first MTP joint. 2. Small soft tissue swelling identified dorsal to the mid foot. Electronically signed by: Paul Forde MD (07/20/2019 10:56 PM) [id number]
== END 2019-07-20 23:01 | disposition home or self-care (01) ==
LOC: ER 21:29
DX: M79.672 Pain in left foot (principal); R22.42 Localized swelling, mass and lump, left lower limb; E11.22 Type 2 diabetes mellitus with diabetic chronic kidney disease; I12.9 Hypertensive chronic kidney disease with stage 1 through stage 4 chronic kidney disease, or unspecified chronic kidney disease; N18.3 Chronic kidney disease, stage 3 (moderate); Z88.5 Allergy status to narcotic agent
CPT/HCPCS: 73630; 99283

== ENCOUNTER 2020-02-25 18:48 | Emergency (ER) | payer MEDICARE ==
[~2020-02-25] VITALS: Ht 160 cm; Wt 87.7 kg
[~2020-02-25 18:48] MED LIST changes: +AMLO-187 PO; -AMLO10TA8 PO; +metformin
--- NOTE | 2020-02-25 20:17 | RAD ---
Right tibia and fibula AP and lateral views. HISTORY: Superior tibia swelling and pain AP and lateral views were taken of the right tibia and fibula. There is soft tissue swelling anterior to the tibia. There is no fracture or bony destructive process. There is mild irregularity the media l and lateral malleolus at the ankle probably old injuries, no acute fracture is noted. IMPRESSION: 1. Anterior soft tissue swelling. 2. No underlying osseous abnormality. Electronically signed by: Jordan العلي MD (02/25/2020 8:15 PM) [facility]
--- NOTE | 2020-02-25 20:43 | PHYS DOC ---
Past History Past Medical History: Diabetes, High Cholesterol, Hypertension Additional Past Medical Histor: STAGE 3 KIDNEY FAILURE Past Surgical History: Tubal ligation Alcohol Use: None Drug Use: None Adult General Chief Complaint Chief Complaint: LOWER EXT PAIN HPI HPI Patient is a 69-year-old female presents emergency department complaining that approximately 1 week ago she woke up and noticed a painful knot on her right lower knee stating that her pain steadily increases from a minor pain up to about a 8/10 1-10 pain scale while ambulating throughout the day. Patient denies any acute injury, denies seeing any drainage or redness or heat to the area. Patient denies any numbness or tingling down her right leg. Patient states she has not taken anything for the pain. Patient states that she has an allergy to hydromorphone, she takes medications for hypertension type 2 diabetes and heart problems at home. Patient denies any recent fever or chills, chest pains, cough, congestion, chest palpitations. Patient denies any rashes of her skin, patient denies any hives, patient denies any allergic reactions. Patient states no one else living in her home is having the same symptoms that she. Review of Systems Review of Systems 14 body systems of review of systems have been reviewed. See HPI for pertinent positives and negative responses, otherwise all other systems are negative, nonpertinent or noncontributory. Current Medications Current Medications See nursing documentation for patient's current med list. Allergies Allergies Allergies Coded Allergies Type Severity Reaction Last Updated Verified hydromorphone Allergy Severe HALUC 07/20/19 Yes Physical Exam Physical Exam Constitutional: Well developed, well nourished, no acute distress, non-toxic appearance. HENT: Normocephalic, atraumatic, bilateral external ears normal, oropharynx moist, no oral exudates, nose normal. Eyes: PERRLA, EOMI, conjunctiva normal, no discharge. Neck: Normal range of motion, no tenderness, supple, no stridor. Cardiovascular:Heart rate regular rhythm, no murmur Lungs & Thorax: Bilateral breath sounds clear to auscultation Abdomen: Bowel sounds normal, soft, no tenderness, no masses, no pulsatile masses. Skin: Warm, dry, no erythema, no rash. Back: No tenderness, no CVA tenderness. Extremities: No tenderness, no cyanosis, no clubbing, ROM intact, no edema. Nonfluctuant mass palpated just below right patella over the distal patellar insertion site of the tibia, pain elicited with palpation, no fluctuance, no sign of infection, no erythema appreciated. There is no crepitus noted, patient's neurovascular intact distally, distal cap refill is less than 2 seconds, 2+ posterior tibial and dorsalis pedis pulses. No skin lesions appreciated, no drainage noted. Skin intact. Full AROM/PROM however passive range of motion does elicit pain to this area. Neurologic: Alert and oriented X 3, normal motor function, normal sensory fu nction, no focal deficits noted. Psychologic: Affect normal, judgement normal, mood normal. Current Patient Data Vital Signs Vital Signs Date Time Temp Pulse Resp B/P (MAP) Pulse Ox O2 Delivery O2 Flow Rate FiO2 02/25/20 19:40 98.7 84 18 127/59 (81) 98 Room Air EKG EKG [] Radiology/Procedures Radiology/Procedures STATUS: REG ER ORD. PHYSICIAN: MINA NORRIS APRN REASON: SUPERIOR TIBIA SWELLING AND PAIN x 1 week, no trauma PROCEDURE: TIBIA FIBULA RIGHT Right tibia and fibula AP and lateral views. HISTORY: Superior tibia swelling and pain AP and lateral views were taken of the right tibia and fibula. There is soft tissue swelling anterior to the tibia. There is no fracture or bony destructive process. There is mild irregularity the medial and lateral malleolus at the ankle probably old injuries, no acute fracture is noted. IMPRESSION: 1. Anterior soft tissue swelling. 2. No underlying osseous abnormality. Electronically signed by: Jordan العلي MD (02/25/2020 8:15 PM) [facility] DICTATED AND SIGNED BY: JORDAN العلي MD DATE: 02/25/202012 CC: MINA NORRIS APRN; HUYEN PHOENIX MD; MAXINE ECKERT MD ~MTH0 0 Heart Score Risk Factors: Risk Factors: DM, Current or recent (<one month) smoker, HTN, HLP, family history of CAD, obesity. Risk Scores: Risk Factors: DM, Current or recent (<one month) smoker, HTN, HLP, family history of CAD, obesity. Course & Med Decision Making Course & Med Decision Making Pertinent Labs and Imaging studies reviewed. (See chart for details) 69-year-old female presents emergency department with right lower extremity pain at the distal patellar tendon insertion site of the tibia. Patient denied trauma, physical examination was consistent with tendinitis, and x-ray was performed to rule out deep tissue infection or occult fracture, read negative for acute process by house radiologist interpretation. Discussed findings with patient, patient was given IM Depo-Medrol and p.o. Tylenol for pain. A NSAID was considered but withheld related to patient's stated history of renal insufficiency that she reports her doctor told her she may require dialysis at some point. Patient gave verbal understanding of discharge home instructions, follow-up with orthopedics. Patient reports she has a bone scan this week and will talk to her orthopedic physician at that time. Patient gave verbal understanding of return to ER precautions and concerns, patient had no further questions or concerns, patient discharged home without incident. Dragon Disclaimer Dragon Disclaimer This electronic medical record was generated, in whole or in part, using a voice recognition dictation system. Departure Departure: Impression: Primary Impression: Patellar tendonitis Disposition: 01 DC HOME SELF CARE/HOMELESS Condition: IMPROVED Referrals: MAXINE ECKERT MD (PCP) Patient Instructions: Patellar Tendinitis, Jumper's Knee with [facility] Additional Instructions: Please use Tylenol for pain, see your sports specialist soon and talk with them about treatment for your knee pain. Return to the emergency department for worsening symptoms or other concerns, use Elia wrap for comfort. EMERGENCY DEPARTMENT GENERAL DISCHARGE INSTRUCTIONS Thank you for coming to [facility] (ED) today and trusting us with you care. We trust that you had a positivie experience in our Emergency Department. If you wish to speak to the department management, you may call the director at [phone]. YOUR FOLLOW UP INSTRUCTIONS ARE FOLLOWS: 1. Do you have a private Doctor? If you do not have a private doctor, please ask for a resource list of physicians or clinics that may be able to assist you with follow up care. 2. The Emergency Physician has interpreted your x-rays. The X-Ray specialist will also review them. If there is a change in the findings, you will be notified in 48 hours when at all possible. 3. A lab test or culture has been done, your results will be reviewed and you will be notified if you need a change in treatment. ADDITIONAL INSTRUCTIONS AND INFORMATION: 1. Your care today has been supervised by a physician who is specially trained in emergency care. Many problems require more than one evaluation for a complete diagnosis and treatment. We recommend that you schedule your follow up appointment as graham mmended to ensure complete treatment of you illness or injury. If you are unable to obtain follow up care and continue to have a problem, or if your condition worsens, we recommend that you return to the ED. 2. We are not able to safely determine your condition over the phone nor are we able to give sound medical advice over the phone. For these safety reasons, if you call for medical advice we will ask you to come to the ED for further evaluation. 3. If you have any questions regarding these discharge instructions please call the ED at [phone]. SAFETY INFORMATION: In the interest of safety, wellness, and injury prevention; we encourage you to wear your sealbelt, if you smoke; quite smoking, and we encourage family to use a protective helmet for bicycling and other sporting events that present an increased risk for head injury. IF YOUR SYMPTOMS WORSEN OR NEW SYMPTOMS DEVELOP, OR YOU HAVE CONCERNS ABOUT YOUR CONDITION; OR IF YOUR CONDITION WORSENS WHILE YOU ARE WAITING FOR YOUR FOLLOW UP APPOINTMENT; EITHER CONTACT YOUR PRIMARY CARE DOCTOR, THE PHYSICIAN WHOSE NAME AND NUMBER YOU WERE GIVEN, OR RETURN TO THE ED IMMEDIATELY. Problem Qualifiers Primary Impression: Patellar tendonitis Laterality: right Qualified Codes: M76.51 - Patellar tendinitis, right knee MINA NORRIS APRN Feb 25, 2020 20:43
[2020-02-25] MEDS ORDERED: KETOROLAC 30 MG/ML VIAL. ONE (20:45)
[2020-02-25] MEDS ORDERED: KETOROLAC 30 MG/ML VIAL. IM ONE (20:45)
[2020-02-25] MEDS ORDERED: methylPREDNISolone ACETATE 80 MG/ML VIAL. IM ONE (21:00)
[2020-02-25 21:10] LABS: BASO # 0.1 x10^3/uL (0.0-0.2); BASO % 1 % (0-3); EOS # 0.4 x10^3/uL (0.0-0.7); EOS % 4 % (0-3); HEMOGLOBIN 11.6 g/dL (12.0-15.5); LYMPH # 3.7 x10^3/uL (1.0-4.8); LYMPH % 40 % (24-48); MEAN CORPUSCULAR HEMOGLOBIN 32 pg (25-35); MEAN CORPUSCULAR HGB CONC 33 g/dL (31-37); MEAN CORPUSCULAR VOLUME 96 fL (79-100); MONO % 11 % (0-9); NEUT # 4.3 x10^3uL (1.8-7.7); NEUT % 45 % (31-73); PLATELET COUNT 298 x10^3/uL (140-400); RED BLOOD COUNT 3.63 x10^6/uL (3.50-5.40); RED CELL DISTRIBUTION WIDTH 12.7 % (11.5-14.5); WHITE BLOOD COUNT 9.4 x10^3/uL (4.0-11.0)
[2020-02-25] MEDS ORDERED: ACETAMINOPHEN 325 MG TABLET PO ONE (21:15)
[2020-02-25 21:17] VITALS: BP 137/52
[2020-02-25 21:25] LABS: CALCIUM 10.5 mg/dL (8.5-10.1); CREATININE 2.5 mg/dL (0.6-1.0); GFR 23.2; POTASSIUM 4.2 mmol/L (3.5-5.1)
[2020-02-25 21:30] LABS: ALBUMIN 3.7 g/dL (3.4-5.0); ALBUMIN/GLOBULIN RATIO 0.8 (1.0-1.7); TOTAL BILIRUBIN 0.2 mg/dL (0.2-1.0); TOTAL PROTEIN 8.2 g/dL (6.4-8.2)
[2020-02-25] MEDS ORDERED: methylPREDNISolone ACETATE 80 MG/ML VIAL. ONE (21:38)
== END 2020-02-25 21:30 | disposition home or self-care (01) ==
LOC: ER 18:48
DX: M76.51 Patellar tendinitis, right knee (principal); E11.22 Type 2 diabetes mellitus with diabetic chronic kidney disease; I12.9 Hypertensive chronic kidney disease with stage 1 through stage 4 chronic kidney disease, or unspecified chronic kidney disease; N18.30 Chronic kidney disease, stage 3 unspecified; E78.00 Pure hypercholesterolemia, unspecified; Z98.51 Tubal ligation status; Z88.5 Allergy status to narcotic agent
CPT/HCPCS: 36415; 73590; 80053; 85025; 96372; 99284; J1040

== ENCOUNTER 2020-07-27 16:55 | Emergency (ER) | payer MEDICARE ==
[~2020-07-27] VITALS: Ht 160 cm; Wt 85.5 kg
[~2020-07-27 16:55] MED LIST changes: -ISOS30TA4 PO; +ISOS30TA68 PO; -LISI40TA PO; +LISI40TA6 PO
[2020-07-27] MEDS ORDERED: IV NORMAL SALINE 1,000ML 1,000 ML IV ONE (17:15)
--- NOTE | 2020-07-27 17:20 | EKG ---
[address] [address] Test Date: 2020-07-27 Test Time: 17:05:13 Pat Name: FAITH BUSTILLOS Department: Room: Gender: F Manager Decision Support: EMANUEL : 1950 Requested By: ENA MISHRA Order Number: [id number] Reading MD: Measurements Intervals [place] Rate: 82 P: 66 MD: 170 QRS: 42 QRSD: 86 T: 106 QT: 382 QTc: 449 Interpretive Statements SINUS RHYTHM R-S TRANSITION ZONE IN V LEADS DISPLACED TO THE LEFT T ABNORMALITY IN HIGH LATERAL LEADS ABNORMAL ECG RI6.02 No previous ECG available for comparison
--- NOTE | 2020-07-27 17:25 | PHYS DOC ---
Past History Past Medical History: Diabetes, High Cholesterol, Hypertension, Stroke Additional Past Medical Histor: STAGE 3 KIDNEY FAILURE (ENA MISHRA DO) Past Medical History: Angina, Anxiety, Arthritis, Arrhythmia, Cancer, Diabetes, High Cholesterol, Hypertension, [place], Renal Disease, Stroke, TIA (JOSE ROBERTO SOLORIO MD) Past Surgical History: Coronary Bypass Surgery, Tubal ligation (ENA MISHRA DO) Past Surgical History: Angioplasty, Coronary Bypass Surgery, Tubal ligation (JOSE ROBERTO SOLORIO MD) Alcohol Use: None Drug Use: None (ENA MISHRA DO) General Adult EDM: Chief Complaint: NEURO SYMPTOMS/DEFICITS HPI: HPI: 69-year-old female presents with concern for TIA. Patient was with her daughter and was talking and then suddenly went limp. Her daughter was able to wake her and the patient said to fully intelligible words, but the rest of the things she was trying to say was unintelligible. Her daughter can tell that it was frustrating to the patient that she could not get her words to make sense. They called an ambulance for the patient. Prior to arrival, the patient was able to speak clearly. Her daughter reports that she feels like her voice sounds like baseline. The patient tells me that she has a frontal headache and that she does not typically get headaches. 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 She has some residual left upper extremity weakness. Patient is feeling well prior to this episode. She did ju st have her carvedilol dose increased a few days ago. She took her carvedilol about 90 minutes prior to this episode. The patient is diabetic on insulin. Her blood sugar today has been within normal. She denies fever or chills. (ENA MISHRA DO) Review of Systems: Review of Systems: Constitutional: Denies fever or chills Eyes: Denies change in visual acuity HENT: Denies nasal congestion or sore throat Respiratory: Denies cough or shortness of breath Cardiovascular: Denies chest pain or edema GI: Denies abdominal pain, nausea, vomiting, bloody stools or diarrhea : Denies dysuria Musculoskeletal: Denies back pain or joint pain Integument: Denies rash Neurologic: Slurred speech, headache. Endocrine: Denies polyuria or polydipsia Lymphatic: Denies swollen glands Psychiatric: Denies depression or anxiety (ENA MISHRA DO) Current Medications: Current Meds: Current Medications Medications (Trade) Dose Ordered Sig/Miya Start Time Stop Time Status Last Admin Dose Admin Sodium Chloride 1,000 ml @ 1,000 mls/hr 1X ONCE 07/27/20 17:15 07/27/20 18:14 (ENA MISHRA DO) Allergies: Allergies: Allergies Coded Allergies Type Severity Reaction Last Updated Verified hydromorphone Allergy Severe HALUC 07/20/19 Yes (ENA MISHRA DO) Physical Exam: PE: Constitutional: Well developed, well nourished, obese, no acute distress, non-t oxic appearance. [] HENT: Normocephalic, atraumatic, bilateral external ears normal, oropharynx moist, no oral exudates, nose normal. [] Eyes: PERRLA, EOMI, conjunctiva normal, no discharge. [] Neck: Normal range of motion, no tenderness, supple, no stridor. [] Cardiovascular: Heart rate regular rhythm, no murmur [] Lungs & Thorax: Bilateral breath sounds clear to auscultation [] Abdomen: Bowel sounds normal, soft, no tenderness, no masses, no pulsatile masses. [] Skin: Warm, dry, no erythema, no rash. Well-healed open heart surgical scar. [] Back: No tenderness, no CVA tenderness. [] Extremities: No tenderness, no cyanosis, no clubbing, ROM intact, no edema. [] Neurologic: Alert and oriented X 3, normal motor function, normal sensory function, no focal deficits noted. [] Psychologic: Affect normal, judgement normal, mood normal. [] (NEA MISHRA DO) Current Patient Data: Vital Signs: Vital Signs Date Time Temp Pulse Resp B/P (MAP) Pulse Ox O2 Delivery O2 Flow Rate FiO2 07/27/20 17:00 98.5 72 14 140/71 (94) 96 Room Air (ENA MISHRA DO) EKG: EKG: [] (ENA MISHRA DO) Radiology/Procedures: Radiology/Procedures: [] (ENA MISHRA DO) Radiology/Procedures: [id number] [place] [address] IMAGING REPORT Signed PATIENT: FAITH BUSTILLOS MACCOUNT: [id number] : 1950 LOCATION: ER AGE: 69 SEX: F EXAM STATUS: REG ER ORD. PHYSICIAN: ENA MISHRA DO REASON: slurred speech PROCEDURE: CHEST AP ONLY XR CHEST 1V History: Reason: slurred speech / Spl. Instructions: / History: Comparison: February 05, 2019 Findings: No consolidation or pleural effusion. Normal heart size. No pneumothorax. Prior median sternotomy. Impression: 1. No acute cardiopulmonary process. Electronically signed by: Daniel Bill DO (07/27/2020 6:17 PM) [facility] DICTATED AND SIGNED BY: DANIEL BILL DO DATE: 07/27/201815 CC: ENA MISHRA DO; JOSE ROBERTO SOLORIO MD; MAXINE ECKERT MD ~MTH0 IMAGING REPORT Signed PATIENT: FAITH BUSTILLOS MACCOUNT: [id number] : 1950 LOCATION: ER AGE: 69 SEX: F EXAM STATUS: REG ER ORD. PHYSICIAN: ENA MISHRA DO REASON: slurred speech PROCEDURE: CT HEAD WO CONTRAST Exam: CT head INDICATION: Slurred speech TECHNIQUE: Sequential axial images through the head were obtained without the administration of IV contrast. Exposure: One or more of the following in the visualized dose reduction techniques were utilized for this examination: 1. Automated exposure control 2. Adjustment of the MA and/or KV according to patient size 3. Use of iterative of reconstructive technique Comparisons: None FINDINGS: No focal parenchymal lesion or hemorrhage is identified. There is no midline shift or sulcal effacement. Hypodensity in the superior right frontal/parietal lobe. Additionally a focal area of hypodensity within the anterior right frontal lobe. Patchy hypodensity in the periventricular white matter. Shabazz-white distinction is preserved. The ventricular system is within normal limits without compression hyd rocephalus. The basal cisterns are well maintained. The visualized portions of the paranasal sinuses and mastoid air cells are well- pneumatized. No acute fractures. IMPRESSION: Several supratentorial infarcts, likely chronic. Additionally there is moderate small vessel ischemic change. This is technically age indeterminate without recent prior imaging. If there are concerns for acute ischemia MRI would better evaluate. Electronically signed by: Eddie Paredes MD (07/27/2020 6:07 PM) [facility] DICTATED AND SIGNED BY: EDDIE PAREDES MD DATE: 07/27/20 180 CC: ENA MISHRA DO; MAXINE ECKERT MD ~MTH0 0 (JOSE ROBERTO SOLORIO MD) Heart Score: C/O Chest Pain: No Risk Factors: Risk Factors: DM, Current or recent (<one month) smoker, HTN, HLP, family history of CAD, obesity. Risk Scores: Score 0 - 3: 2.5% MACE over next 6 weeks - Discharge Home Score 4 - 6: 20.3% MACE over next 6 weeks - Admit for Clinical Observation Score 7 - 10: 72.7% MACE over next 6 weeks - Early Invasive Strategies (ENA MISHRA DO) C/O Chest Pain: No HEART Score for Chest Pain: HEART Score for Chest Pain Response (Comments) Value History Moderately Suspicious 1 ECG Nonspecific Repolarizatio 1 Age > 65 2 Risk Factors 1 or 2 Risk Factors 1 Troponin < Normal Limit 0 Total 5 (JOSE ROBERTO SOLORIO MD) Course & Med Decision Making: Course & Med Decision Making Pertinent Labs and Imaging studies reviewed. (See chart for details) The patient's work-up is pending. I am signing the patient out to Dr. Solorio at 1743. [] (ENA MISHRA DO) Course & Med Decision Making See Dr. March chart for details prior shift change. Pt. and Grand Daughter request transfer to [facility]. 1900 hr [facility] Transfer called back at 2000 hrs. Reviewed presentation, testing, tx. with Dr. Motta and Dr. Loving. Pt. accepted in transfer. Awaiting bed and hospital assignment. . Henrietta- social media coordinator called back at 2030 hrs. advised currently no beds available at any of the [facility] facilities at this time.. Pt. now requesting to transfer to [facility]- Dr. Herrera accepting. 2229. Plan possible MRI , neurology consult. Patient remained at her normal baseline per patient and her granddaughter. Impression: 1. Altered mental status 2. TIA 3. History of hypertension 4. History of diabetes glucose tonight 166 5. History of renal insufficiency BUN 25 creatinine 2.0 6. Chronic left upper arm weakness=-sequela of previous CVA-hemorrhagic ( at time of coronary artery bypass surgery) 7. Hx of Prior Ischemic CVA/ TIA's (JOSE ROBERTO SOLORIO MD) Dragon Disclaimer: Clemencia Disclaimer: This electronic medical record was generated, in whole or in part, using a voice recognition dictation system. (ENA MISHRA DO) Departure Departure: Referrals: MAXINE ECKERT MD (PCP) ENA MISHRA DO July 27, 2020 17:25 JOSE ROBERTO SOLORIO MD July 27, 2020 19:12
[2020-07-27 18:01] LABS: BASO # 0.1 x10^3/uL (0.0-0.2); BASO % 1 % (0-3); EOS # 0.3 x10^3/uL (0.0-0.7); EOS % 4 % (0-3); HEMATOCRIT 39.1 % (36.0-47.0); LYMPH # 2.8 x10^3/uL (1.0-4.8); LYMPH % 35 % (24-48); MEAN CORPUSCULAR HEMOGLOBIN 31 pg (25-35); MEAN CORPUSCULAR HGB CONC 33 g/dL (31-37); MEAN CORPUSCULAR VOLUME 92 fL (79-100); MONO # 0.9 x10^3/uL (0.0-1.1); MONO % 11 % (0-9); NEUT # 4.1 x10^3uL (1.8-7.7); NEUT % 50 % (31-73); PLATELET COUNT 244 x10^3/uL (140-400); RED BLOOD COUNT 4.24 x10^6/uL (3.50-5.40); RED CELL DISTRIBUTION WIDTH 15.5 % (11.5-14.5); WHITE BLOOD COUNT 8.1 x10^3/uL (4.0-11.0)
[2020-07-27 18:09] LABS: CALCIUM 9.5 mg/dL (8.5-10.1); GFR 30.1; POTASSIUM 3.5 mmol/L (3.5-5.1)
--- NOTE | 2020-07-27 18:09 | RAD ---
Exam: CT head INDICATION: Slurred speech TECHNIQUE: Sequential axial images through the head were obtained without the administration of IV co ntrast. Exposure: One or more of the following in the visualized dose reduction techniques were utilized for this examination: 1. Automated exposure control 2. Adjustment of the MA and/or KV according to patient size 3. Use of iterative of reconstructive technique Comparisons: None FINDINGS: No focal parenchymal lesion or hemorrhage is identified. There is no midline shift or sulcal effaceme nt. Hypodensity in the superior right frontal/parietal lobe. Additionally a focal area of hypodensity wit hin the anterior right frontal lobe. Patchy hypodensity in the periventricular white matter. Shabazz-whi te distinction is preserved. The ventricular system is within normal limits without compression hydrocephalus. The basal cisterns are well maintained. The visualized portions of the paranasal sinuses and mastoid air cells are well-pneumatized. No acute fractures. IMPRESSION: Several supratentorial infarcts, likely chronic. Additionally there is moderate small vessel ischemic change. This is technically age indeterminate without recent prior imaging. If there are concerns fo r acute ischemia MRI would better evaluate. Electronically signed by: Eddie Gage MD (07/27/2020 6:07 PM) [facility]
[2020-07-27 18:19] LABS: BACTERIA,URINE 0 /HPF (0-FEW); BILIRUBIN,URINE NEG (NEG); CLARITY,URINE HAZY; COLOR,URINE YELLOW; GLUCOSE,URINE NEG (NEG); NITRITE,URINE NEG (NEG); SQUAMOUS EPITHELIAL CELL,UR FEW /LPF; UROBILINOGEN,URINE 0.2 mg/dL (0.2 mg/dL)
--- NOTE | 2020-07-27 18:19 | RAD ---
XR CHEST 1V History: Reason: slurred speech / Spl. Instructions: / History: Comparison: February 05, 2019 Findings: No consolidation or pleural effusion. Normal heart size. No pneumothorax. Prior median sternotomy. Impression: 1. No acute cardiopulmonary process. Electronically signed by: Daniel Bill DO (07/27/2020 6:17 PM) [facility]
[2020-07-27 18:26] LABS: ALBUMIN 3.5 g/dL (3.4-5.0); ALBUMIN/GLOBULIN RATIO 0.9 (1.0-1.7); TOTAL BILIRUBIN 0.3 mg/dL (0.2-1.0); TOTAL PROTEIN 7.6 g/dL (6.4-8.2)
[2020-07-27 21:54] VITALS: BP 133/74
== END 2020-07-27 23:28 | disposition short-term general hospital (02) ==
LOC: ER 16:55
DX: G45.9 Transient cerebral ischemic attack, unspecified (principal); R41.82 Altered mental status, unspecified; I10 Essential (primary) hypertension; N28.9 Disorder of kidney and ureter, unspecified; E11.9 Type 2 diabetes mellitus without complications; R53.1 Weakness; E78.00 Pure hypercholesterolemia, unspecified; M19.90 Unspecified osteoarthritis, unspecified site; I25.2 Old myocardial infarction; Z86.73 Personal history of transient ischemic attack (TIA), and cerebral infarction without residual deficits; Z95.1 Presence of aortocoronary bypass graft; Z88.5 Allergy status to narcotic agent
CPT/HCPCS: 36415; 70450; 71045; 80053; 81001; 84484; 85025; 87086; 93005; 99285; J7030

== ENCOUNTER 2020-08-27 10:24 | Emergency (ER) | payer MEDICARE ==
[~2020-08-27] VITALS: Ht 162.6 cm; Wt 86.6 kg
--- NOTE | 2020-08-27 11:25 | PHYS DOC ---
Past History Past Medical History: Angina, Anxiety, Arthritis, Arrhythmia, Cancer, Diabetes, High Cholesterol, Hypertension, MS, Renal Disease, Stroke, TIA Additional Past Medical Histor: STAGE 3 KIDNEY FAILURE Past Surgical History: Angioplasty, Coronary Bypass Surgery, Tubal ligation Alcohol Use: None Drug Use: None Adult General Chief Complaint Chief Complaint: OTHER COMPLAINTS HPI HPI Patient is a 69-year-old female presenting for Dexcom issues. She is a known type II diabetic, has been using a Dexcom device for the last 10 months with great efficacy. Reports implanting it on a more superior site of abdomen than usual and noticed bleeding that was soaking her Tegaderm patch. She was concerned as she is on Brilinta and immediately presented to our ER for evaluation. Reports she is asymptomatic, no lightheadedness or dizziness, no extensive blood loss noted besides that which is contained within Tegaderm. States this is never happened to her in the past Review of Systems Review of Systems Fourteen body systems of review of systems have been reviewed. See HPI for pertinent positives and negative responses, other tyson all other systems are negative, non-pertinent or non-contributory Allergies Allergies Allergies Coded Allergies Type Severity Reaction Last Updated Verified hydromorphone Allergy Severe HALUC 07/27/20 Yes Physical Exam Physical Exam Constitutional: Well developed, well nourished, no acute distress, non-toxic appearance. HENT: Normocephalic, atraumatic, bilateral external ears normal, oropharynx moist, no oral exudates, nose normal. Eyes: PERRLA, EOMI, conjunctiva normal, no discharge. Neck: Normal range of motion, no tenderness, supple, no stridor. Cardiovascular: Heart rate regular per monitor Lungs & Thorax: No respiratory distress or accessory muscle use, bilateral chest rise Abdomen: Abdomen soft, non-tender, bowel sounds present in all quadrants, no guarding or rebound, nonacute abdomen. Dexcom present with Tegaderm and mild bleeding present no active hemorrhaging or other acute abnormalities Skin: Warm, dry, no erythema, no rash. Back: No tenderness, no CVA tenderness. Extremities: No tenderness, no cyanosis, no clubbing, ROM intact, no edema. Neurologic: Alert and oriented X 3, grossly normal motor & sensory function, no focal deficits noted. Psychologic: Affect normal, judgement normal, mood normal. Current Patient Data Vital Signs Vital Signs Date Time Temp Pulse Resp B/P (MAP) Pulse Ox O2 Delivery O2 Flow Rate FiO2 08/27/20 10:37 98.1 68 16 150/59 (89) 98 Room Air EKG EKG [] Radiology/Procedures Radiology/Procedures [] Heart Score C/O Chest Pain: No Risk Factors: Risk Factors: DM, Current or recent (<one month) smoker, HTN, HLP, family history of CAD, obesity. Risk Scores: Risk Factors: DM, Current or recent (<one month) smoker, HTN, HLP, family history of CAD, obesity. Course & Med Decision Making Course & Med Decision Making Discussed with the patient all findings and diagnostic testing. Dexcom device and Tegaderm were removed and direct pressure was held on insertion site with hemostasis achieved in less than 30 seconds. No subcutaneous abnormalities p alpated, no ongoing bleeding, no crepitus or other concerning abnormalities. Discussed with patient likelihood of Dexcom device placement abnormality such as kinked needle or overlying superficial vessel causing bleeding that responded to direct pressure. At present, given that patient is asymptomatic and hemodynamically stable, joint decision to defer any further diagnostic work-up in ER setting. Advised patient to place Dexcom on different site and continue routine outpatient medications. I stressed need for close outpatient follow-up to review today's ER visit. Strict return precautions were also discussed at length with good understanding by patient. Patient voiced understanding and agreement with the plan. Patient knows to come back for repeat evaluation if concerning signs or symptoms present prior to outpatient follow-up. Hemodynamically stable, ambulatory and well-appearing at time of disposition. Dragon Disclaimer Dragon Disclaimer This electronic medical record was generated, in whole or in part, using a voice recognition dictation system. Departure Departure: Impression: Primary Impression: Device, implant, or graft complication Disposition: HOME / SELF CARE / HOMELESS Condition: IMPROVED Referrals: MAXINE ECKERT MD (PCP) Additional Instructions: As discussed prior to ER departure, your vital signs and physical examination was unremarkable. Your Dexcom device was removed and pressure was applied with resolution of your bleeding. You likely bled more due to the fact that you are on Brilinta. Nonetheless, your blood loss was not significant enough to require further diagnostic work-up especially because you are not symptomatic. As disclosed, this might be an acute presentation more concerning pathology and so, close outpatient follow-up with primary care physician is advised. If any concerning signs or symptoms present prior to outpatient follow-up please do not hesitate to come back for repeat evaluation. It was a pleasure to take care of you and I wish you the best going forward ANGELINE MOELLER 24, 2021 11:25
[2020-08-27 11:29] VITALS: BP 147/61
== END 2020-08-27 11:33 | disposition home or self-care (01) ==
LOC: ER 10:24
DX: T85.898A Other specified complication of other internal prosthetic devices, implants and grafts, initial encounter (principal); E11.9 Type 2 diabetes mellitus without complications; E78.5 Hyperlipidemia, unspecified; I10 Essential (primary) hypertension; I25.2 Old myocardial infarction; Z98.51 Tubal ligation status; Z86.73 Personal history of transient ischemic attack (TIA), and cerebral infarction without residual deficits
CPT/HCPCS: 99281

== ENCOUNTER 2020-10-29 03:18 | Emergency (ER) | payer MEDICARE ==
[~2020-10-29] VITALS: Ht 162.6 cm; Wt 86.6 kg
--- NOTE | 2020-10-29 03:42 | PHYS DOC ---
Past History Past Medical History: Angina, Anxiety, Arthritis, Arrhythmia, Cancer, Diabetes, High Cholesterol, Hypertension, [place], Renal Disease, Stroke, TIA Additional Past Medical Histor: STAGE 3 KIDNEY FAILURE Past Surgical History: Angioplasty, Coronary Bypass Surgery, Tubal ligation Smoking: Non-smoker Alcohol Use: None Drug Use: None General Adult EDM: Chief Complaint: ANXIETY/PANIC ATTACK HPI: HPI: 69-year-old female presents with report of elevated blood pressure today after having an episode of vomiting. Patient reports her blood pressure was 150s over 80s. Patient reports concerned as she has had a history of prior strokes. Patient reports some associated headache and nausea/vomiting. Denies fever or chills. Denies cough. Denies known exposure to COVID-19. Patient has not been vaccinated for COVID-19. Review of Systems: Review of Systems: Constitutional: Denies fever or chills Eyes: Denies redness or eye pain HENT: Denies nasal congestion or sore throat Respiratory: Denies cough or shortness of breath Cardiovascular: Denies chest pain or palpitations GI: Denies abdominal pain; reports nausea and vomiting : Denies dysuria or hematuria Musculoskeletal: Denies back pain or joint pain Integument: Denies rash or skin lesions Neurologic: Reports headache; denies focal weakness or sensory changes Complete systems were reviewed and found to be within normal limits, except as documented in this note. Allergies: Allergies: Allergies Coded Allergies Type Severity Reaction Last Updated Verified hydromorphone Allergy Severe HALUC 07/27/20 Yes Physical Exam: PE: Constitutional: Well developed, well nourished, anxious, non-toxic appearance HENT: Normocephalic, atraumatic Eyes: PERRL, EOMI, conjunctiva normal, no discharge, no nystagmus Neck: Normal range of motion, no tenderness, supple Lungs & Thorax: No respiratory distress, equal chest rise and fall Abdomen: Soft, no tenderness Skin: Warm, dry, no erythema, no rash Extremities: No tenderness, ROM intact, no edema Neurologic: Alert and oriented X 3, normal motor function, normal sensory function, no focal deficits noted Psychologic: Affect anxious, judgment normal EKG: EKG: @0343 NSR at 65bpm, NO ST elevation, QRS 88ms, QT/QTc 418/435ms Radiology/Procedures: Radiology/Procedures: [] Heart Score: C/O Chest Pain: N/A Course & Med Decision Making: Course & Med Decision Making Pertinent Labs and Imaging studies reviewed. (See chart for details) Patient presents with report of elevated blood pressure with associated headache and nausea and vomiting that started early this morning. Patient reports concern due to history of stroke. Patient's blood pressure upon arrival was 150s over 80s. Patient reports similar type blood pressures at home. Patient appears neurologically at baseline. EKG stable. Labs obtained and posted to chart. CT head without acute process. No signs of new end organ damage appreciated. Concern for anxiety component. Patient stable for discharge with outpatient follow-up with PCP. Discussed findings and plan with patient, who acknowledges understanding and agreement. Dragon Disclaimer: Hello Universe Disclaimer: This electronic medical record was generated, in whole or in part, using a voice recognition dictation system. Departure Departure: Impression: Primary Impression: Hypertension Qualified Codes: I10 - Essential (primary) hypertension Additional Impression: Anxiety Disposition: 01 HOME / SELF CARE / HOMELESS Condition: STABLE Referrals: MAXINE ECKERT MD (PCP) Patient Instructions: Anxiety and Panic Attacks, [id number], Hypertension, [id number] Additional Instructions: Please follow-up with your family physician regarding further management of your blood pressure and anxiety. MINA CARPENTER DO Oct 29, 2020 03:42
--- NOTE | 2020-10-29 03:55 | EKG ---
[address] [address] Test Date: 2020-10-29 Test Time: 03:43:54 Pat Name: FAITH BUSTILLOS Department: Room: Gender: F Audio/Visual Operator: ALFONSO : 1950 Requested By: MINA CARPENTER Order Number: [id number] Reading MD: Measurements Intervals Vail Rate: 65 P: 62 MN: 184 QRS: 29 QRSD: 88 T: 116 QT: 418 QTc: 435 Interpretive Statements SINUS RHYTHM T ABNORMALITY IN HIGH LATERAL LEADS ABNORMAL ECG RI6.02 Compared to ECG 10/29/2020 03:42:30 No significant changes
--- NOTE | 2020-10-29 04:32 | RAD ---
PQRS Compliance Statement: One or more of the following individualized dose reduction techniques were utilized for this examinat ion: 1. Automated exposure control 2. Adjustment of the mA and/or kV according to patient size 3. Use of iterative reconstruction technique CT HEAD WITHOUT CONTRAST History: Reason: HTN, headache, N/V / Comparison: CT head without contrast July 27, 2020. Technique: Axial images are obtained of the head from the skull base through the vertex without IV co ntrast. Findings: Stable old cortical infarct right frontoparietal lobe. Stable old cortical infarct anterior right fro ntal lobe. No mass-effect, midline shift, extra-axial fluid collection, hemorrhage, or obvious acute infarction is identified. Basilar cisterns are patent. The ventricles and sulci are prominent, consistent with age-related cerebral atrophy. Incidental cavu m. Bone windows demonstrate no acute calvarial abnormality. The visualized paranasal sinuses are clear. Mastoid air cells are well aerated. IMPRESSION: 1. No acute intracranial abnormality. 2. Generalized cerebral atrophy. 3. Stable old infarcts anterior right frontal lobe and right frontoparietal lobe. Electronically signed by: Fili Victor MD (10/29/2020 4:30 AM) [facility]
[2020-10-29 04:46] LABS: BASO # 0.1 x10^3/uL (0.0-0.2); BASO % 1 % (0-3); EOS # 1.1 x10^3/uL (0.0-0.7); EOS % 14 % (0-3); HEMATOCRIT 38.1 % (36.0-47.0); HEMOGLOBIN 12.8 g/dL (12.0-15.5); LYMPH # 2.2 x10^3/uL (1.0-4.8); LYMPH % 27 % (24-48); MEAN CORPUSCULAR HEMOGLOBIN 32 pg (25-35); MEAN CORPUSCULAR HGB CONC 34 g/dL (31-37); MEAN CORPUSCULAR VOLUME 96 fL (79-100); MONO # 1.1 x10^3/uL (0.0-1.1); MONO % 13 % (0-9); NEUT # 3.7 x10^3uL (1.8-7.7); NEUT % 45 % (31-73); PLATELET COUNT 260 x10^3/uL (140-400); RED BLOOD COUNT 3.96 x10^6/uL (3.50-5.40); RED CELL DISTRIBUTION WIDTH 14.2 % (11.5-14.5); WHITE BLOOD COUNT 8.2 x10^3/uL (4.0-11.0)
[2020-10-29 04:53] LABS: BACTERIA,URINE 0 /HPF (0-FEW); BILIRUBIN,URINE NEG (NEG); CLARITY,URINE CLEAR; COLOR,URINE YELLOW; GLUCOSE,URINE NEG (NEG); NITRITE,URINE NEG (NEG); RBC,URINE 0 /HPF (0-2); SQUAMOUS EPITHELIAL CELL,UR OCC /LPF; UROBILINOGEN,URINE 0.2 mg/dL (0.2 mg/dL)
[2020-10-29 04:55] LABS: CALCIUM 9.5 mg/dL (8.5-10.1); GFR 30.1; POTASSIUM 3.8 mmol/L (3.5-5.1)
[2020-10-29 05:00] VITALS: BP 162/84
[2020-10-29 05:10] LABS: ALBUMIN/GLOBULIN RATIO 1.1 (1.0-1.7); MAGNESIUM 1.7 mg/dL (1.8-2.4); TOTAL BILIRUBIN 0.3 mg/dL (0.2-1.0); TOTAL PROTEIN 7.6 g/dL (6.4-8.2)
== END 2020-10-29 06:40 | disposition home or self-care (01) ==
LOC: ER 03:18
DX: I10 Essential (primary) hypertension (principal); F41.9 Anxiety disorder, unspecified; E11.9 Type 2 diabetes mellitus without complications; E78.5 Hyperlipidemia, unspecified; Z98.51 Tubal ligation status; Z86.73 Personal history of transient ischemic attack (TIA), and cerebral infarction without residual deficits
CPT/HCPCS: 36415; 70450; 80053; 81001; 82553; 83690; 83735; 84484; 85025; 87086; 93005; 99285-25

== ENCOUNTER 2020-11-15 17:23 | Emergency (ER) | payer MEDICARE ==
[~2020-11-15] VITALS: Ht 162.6 cm; Wt 86.6 kg
--- NOTE | 2020-11-15 17:44 | PHYS DOC ---
Past History Past Medical History: Angina, Anxiety, Arthritis, Arrhythmia, Cancer, Diabetes, High Cholesterol, Hypertension, [place], Renal Disease, Renal Failure, Stroke, TIA Additional Past Medical Histor: STAGE 3 KIDNEY FAILURE Past Surgical History: Angioplasty, Coronary Bypass Surgery, Tubal ligation Smoking: Non-smoker Alcohol Use: None Drug Use: None General Adult EDM: Chief Complaint: SHORTNESS OF BREATH HPI: HPI: "I have been more short of breath last 3 days.... My kids have Covid and I have been exposed to them.... I have not got my Covid shot yet...." Patient is a 69 year old female who presents with above hx and complaints of dyspnea. Patient has had some subjective fevers. With primary complaint of dyspnea. Patient has significant medical history of angina, anxiety, arthritis, arrhythmia, cancer, diabetes, high cholesterol, hypertension, MIs, end-stage renal disease, CVAs, TIAs,. Patient has had angioplasty and coronary bypass as well as tubal ligation. Patient coronary artery bypass was done at [facility] on April 13 of this year. Patient also has had breast cancer underwent surgery, radiation and and chemotherapy this was completed in December 2019. Follows with Dr. Eckert as a primary. Patient follow-up with Dr. Hilario for cardiology at [facility]. Patient currently does not remember her renal doctor. Patient is on aspirin and anticoagulant which she does not remember at this time. Has not yet on permanent hemo-dialysis. Review of Systems: Review of Systems: Constitutional: Denies fever or chills Eyes: Denies change in visual acuity HENT: Denies nasal congestion or sore throat Respiratory: Denies cough or shortness of breath Cardiovascular: Denies chest pain or edema GI: Denies abdominal pain, nausea, vomiting, bloody stools or diarrhea : Denies dysuria Musculoskeletal: Denies back pain or joint pain Integument: Denies rash Neurologic: Denies headache, focal weakness or sensory changes Endocrine: Denies polyuria or polydipsia Lymphatic: Denies swollen glands Psychiatric: Denies depression or anxiety Family History: Family History: Does have family history of diabetes and hypertension and renal failure. She has 5 sisters 2 older 3 younger. One sister has diabetes. Father at age 54 because of bleeding ulcer. And a myocardial infarction. Mother at age 70 due to complication end-stage renal disease was on hemodialysis. Mother also had hypertension and CVAs. Current Medications: Current Meds: See nursing for home meds Allergies: Allergies: Allergies Coded Allergies Type Severity Reaction Last Updated Verified hydromorphone Allergy Severe HALUC 07/27/20 Yes Physical Exam: PE: Constitutional: Moderate acute distress, non-toxic appearance. [] HENT: Normocephalic, atraumatic, bilateral external ears normal, oropharynx moist, no oral exudates, nose normal. [] Eyes: PERRLA, EOMI, conjunctiva normal, no discharge. [] Neck: Normal range of motion, no tenderness, supple, no stridor. [] Cardiovascular:Heart rate regular rhythm, no murmur PMI to left Lungs & Thorax: Bilateral breath sounds equal apex bilateral basilar crackles bilaterally. Midline CABG scar. Breasts surgery scars Abdomen: Bowel sounds normal, soft, no tenderness, no masses, no pulsatile masses. Obese. Old surgery. Skin: Warm, dry, no erythema, no rash. [] Back: No tenderness, no CVA tenderness. [] Extremities: No tenderness, no cyanosis, no clubbing, ROM intact, trace ankle edema bilaterally. No cording appreciated. Neurologic: Alert and oriented X 3, normal motor function, normal sensory function, no focal deficits noted. [] Psychologic: Affect anxious, judgement normal, mood normal. [] EKG: EKG: My interpretation EKG shows a sinus rhythm at 75 bpm. Bimodal P waves. Some nonspecific changes anterior leads. No findings of acute STEMI or contralateral changes. Time of EKG is 1803 hrs. [] Radiology/Procedures: Radiology/Procedures: [][place] [address] IMAGING REPORT Signed PATIENT: FAITH BUSTILLOS MACCOUNT: [id number] : 1950 LOCATION: ER AGE: 69 SEX: F EXAM STATUS: REG ER ORD. PHYSICIAN: JOSE ROBERTO HAMMOND MD REASON: dyspnea PROCEDURE: PORTABLE CHEST 1V AP chest x-ray HISTORY: Dyspnea. COMPARISON: Chest x-ray July 27, 2020 FINDINGS: Median sternotomy and coronary bypass. Overlying cardiomegaly stable. No pneumothorax, pulmonary opacities or pleural effusions. IMPRESSION: No acute process. Electronically signed by: Breanna Quiroz MD (11/15/2020 6:19 PM) [facility] [place] DICTATED AND SIGNED BY: BREANNA QUIROZ MD DATE: 11/15/201817 CC: JOSE ROBERTO HAMMOND MD; MAXINE ECKERT MD ~MTH0 0 Heart Score: C/O Chest Pain: No HEART Score for Chest Pain: HEART Score for Chest Pain Response (Comments) Value History Moderately Suspicious 1 ECG Nonspecific Repolarizatio 1 Age > 65 2 Risk Factors 1 or 2 Risk Factors 1 Troponin < Normal Limit 0 Total 5 Risk Factors: Risk Factors: DM, Current or recent (<one month) smoker, HTN, HLP, family history of CAD, obesity. Risk Scores: Score 0 - 3: 2.5% MACE over next 6 weeks - Discharge Home Score 4 - 6: 20.3% MACE over next 6 weeks - Admit for Clinical Observation Score 7 - 10: 72.7% MACE over next 6 weeks - Early Invasive Strategies Course & Med Decision Making: Course & Med Decision Making Pertinent Labs and Imaging studies reviewed. (See chart for details) pt. to follow up with primary. Self isolation until COVID test know. Avoid family members that have COVID. Impression: 1. Dyspnea 2. CHF-diastolic dysfunction BNP is 1026. [] Clemencia Disclaimer: Clemencia Disclaimer: This electronic medical record was generated, in whole or in part, using a voice recognition dictation system. Departure Departure: Referrals: MAXINE ECKERT MD (PCP) JOSE ROBERTO HAMMOND MD Nov 15, 2020 17:44
[2020-11-15] MEDS ORDERED: IV RINGERS SOLUTION,LACTATED 1,000 ML IV SCH (18:00)
[2020-11-15] MEDS ORDERED: ASPIRIN CHEWABLE 81 MG TABLET. PO ONE (18:15)
--- NOTE | 2020-11-15 18:22 | RAD ---
AP chest x-ray HISTORY: Dyspnea. COMPARISON: Chest x-ray July 27, 2020 FINDINGS: Median sternotomy and coronary bypass. Overlying cardiomegaly stable. No pneumothorax, pulm onary opacities or pleural effusions. IMPRESSION: No acute process. Electronically signed by: Tian Quiroz MD (11/15/2020 6:19 PM) [facility]
[2020-11-15 18:55] LABS: BASO % 1 % (0-3); EOS % 0 % (0-3); HEMATOCRIT 36.9 % (36.0-47.0); HEMOGLOBIN 12.4 g/dL (12.0-15.5); LYMPH # 1.7 x10^3/uL (1.0-4.8); LYMPH % 27 % (24-48); MEAN CORPUSCULAR HEMOGLOBIN 33 pg (25-35); MEAN CORPUSCULAR HGB CONC 34 g/dL (31-37); MEAN CORPUSCULAR VOLUME 97 fL (79-100); MONO # 0.7 x10^3/uL (0.0-1.1); MONO % 11 % (0-9); NEUT # 3.8 x10^3uL (1.8-7.7); NEUT % 61 % (31-73); PLATELET COUNT 261 x10^3/uL (140-400); RED BLOOD COUNT 3.81 x10^6/uL (3.50-5.40); WHITE BLOOD COUNT 6.1 x10^3/uL (4.0-11.0)
[2020-11-15 18:56] LABS: INFLUENZA A PATIENT NEGATIVE (NEGATIVE); INFLUENZA B PATIENT NEGATIVE (NEGATIVE)
[2020-11-15 18:57] LABS: CALCIUM 9.1 mg/dL (8.5-10.1); CREATININE 3.3 mg/dL (0.6-1.0); GFR 16.9; POTASSIUM 3.9 mmol/L (3.5-5.1)
[2020-11-15 19:10] LABS: ALBUMIN 3.5 g/dL (3.4-5.0); DIRECT BILIRUBIN 0.1 mg/dL (0.0-0.2); MAGNESIUM 1.9 mg/dL (1.8-2.4); TOTAL BILIRUBIN 0.3 mg/dL (0.2-1.0); TOTAL PROTEIN 7.9 g/dL (6.4-8.2)
[2020-11-15 20:00] VITALS: BP 134/81
[2020-11-15] MEDS ORDERED: FUROSEMIDE 40 MG/4 ML VIAL IVP ONE (20:30)
--- NOTE | 2020-11-15 21:55 | EKG ---
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
[2020-11-21] MEDS ORDERED: FENO48TA3 PO (10:43)
== END 2020-11-15 21:05 | disposition home or self-care (01) ==
LOC: ER 17:23
DX: U07.1 COVID-19 (principal); I11.0 Hypertensive heart disease with heart failure; I50.30 Unspecified diastolic (congestive) heart failure; R06.00 Dyspnea, unspecified; F41.9 Anxiety disorder, unspecified; M19.90 Unspecified osteoarthritis, unspecified site; E11.9 Type 2 diabetes mellitus without complications; E78.00 Pure hypercholesterolemia, unspecified; I25.2 Old myocardial infarction; E11.22 Type 2 diabetes mellitus with diabetic chronic kidney disease; I12.0 Hypertensive chronic kidney disease with stage 5 chronic kidney disease or end stage renal disease; N18.6 End stage renal disease; Z86.73 Personal history of transient ischemic attack (TIA), and cerebral infarction without residual deficits; Z95.1 Presence of aortocoronary bypass graft; Z98.61 Coronary angioplasty status; Z98.51 Tubal ligation status; Z88.5 Allergy status to narcotic agent
CPT/HCPCS: 71045; 80048; 80076; 82550; 83690; 83735; 83880; 84443; 84484; 85025; 85379; 85610; 85730; 87040; 87804; 93005; 96374; 99285; C9803; J1940; J7120; U0003; 96361

== ENCOUNTER 2020-11-20 18:08 | Inpatient (IN) | payer MEDICARE ==
[~2020-11-20] VITALS: Ht 160 cm; Wt 83.6 kg
[2020-11-20] MEDS ORDERED: DEXTROSE 50% 25 GM / 50ML DISP.SYRIN. IV ONE ×2 (18:17→19:30)
--- NOTE | 2020-11-20 18:28 | RAD ---
CT HEAD INDICATION: Reason: LEFT SIDE WEAKNESS / Spl. Instructions: / History: COMPARISON: 10/29/2020 Exposure: One or more of the following individualized dose reduction techniques were utilized for thi s examination: 1. Automated exposure control 2. Adjustment of the mA and/or kV according to patient size 3. Use of iterative reconstruction technique TECHNIQUE: 5 mm contiguous axial images were obtained from the skull base to the vertex in both bone and soft tissue algorithm. FINDINGS: Mild bilateral periventricular white matter hypodensities likely chronic small vessel ischemic diseas e. Old infarcts identified in the right frontal and right frontoparietal region similar to prior exam . No evidence of acute intracranial hemorrhage. No extra-axial fluid collections. No mass effect or midline shift. Ventricular size is appropriate. Basal cisterns are patent. No fractures identified.Shabazz-white differentiation is preserved.Globes and orbits are within normal l imits. Paranasal sinuses and mastoid air cells are clear. IMPRESSION: 1. No acute intracranial findings. 2. Old infarcts right frontal and right frontoparietal region similar to prior exam. FOR INTERNAL CODING PURPOSES Critical result: Findings discussed with ER physician at 11/20/2020 6:20PM. RESULT CODE: (C) 1. Electronically signed by: Paul Forde MD (11/20/2020 6:26 PM) [id number]
--- NOTE | 2020-11-20 18:32 | PHYS DOC ---
Past History Past Medical History: Angina, Anxiety, Arthritis, Arrhythmia, Cancer, Diabetes, High Cholesterol, Hypertension, [place], Renal Disease, Renal Failure, Stroke, TIA Additional Past Medical Histor: STAGE 3 KIDNEY FAILURE Past Surgical History: Angioplasty, Coronary Bypass Surgery, Tubal ligation Smoking: Non-smoker Alcohol Use: None Drug Use: None Adult General HPI HPI Patient is a 69-year-old female with a past medical history significant for insulin-dependent diabetes, stroke, TIAs and cardiovascular disease status post CABG, who presents to the emergency department confused and hypoglycemic with a blood sugar in the 30s. Patient was diagnosed with Covid 5 days ago and states she had a decreased appetite. States she only ate half a hotdog today but still took her Lantus at 30 units last night and a Humalog this morning. Her family about 2 hours before coming into the emergency department she appeared sleepier than usual. Patient denies headache, changes in vision, chest pain, shortness of breath, abdominal pain, nausea, vomiting, dysuria, hematuria, blood in the s tool or diarrhea. Review of Systems Review of Systems Review of systems otherwise unremarkable except noted in HPI Current Medications Current Medications Current Medications Medications (Trade) Dose Ordered Sig/Miya Start Time Stop Time Status Last Admin Dose Admin Dextrose (Dextrose 50%-Water Syringe) 25 gm STK-MED ONCE 11/20/20 18:17 11/20/20 18:18 DC Allergies Allergies Allergies Coded Allergies Type Severity Reaction Last Updated Verified hydromorphone Allergy Severe HALUC 11/15/20 Yes Physical Exam Physical Exam Constitutional: Well developed, well nourished, no acute distress, non-toxic appearance. [] HENT: Normocephalic, atraumatic, oropharynx moist, no oral exudates, nose normal. [] Eyes: PERRLA, EOMI, conjunctiva normal, no discharge. [] Neck: Normal range of motion, no tenderness, supple, no stridor. [] Cardiovascular: Sinus bradycardia Lungs & Thorax: Bilateral breath sounds clear to auscultation [] Abdomen: soft, no tenderness, no masses, no pulsatile masses. [] Skin: Warm, dry, no erythema, no rash. [] Back: no CVA tenderness. [] Extremities: No tenderness, no cyanosis, no clubbing, ROM intact, no edema. [] Neurologic: Alert and oriented X 3, no focal deficits noted. [] Psychologic: Affect normal, judgement normal, mood normal. [] Current Patient Data Lab Results Laboratory Tests Test 11/20/20 18:16 Glucose (Fingerstick) 31 mg/dL (70-99) *L EKG EKG [] Radiology/Procedures Radiology/Procedures [] Heart Score C/O Chest Pain: No Risk Factors: Risk Factors: DM, Current or recent (<one month) smoker, HTN, HLP, family history of CAD, obesity. Risk Scores: Risk Factors: DM, Current or recent (<one month) smoker, HTN, HLP, family history of CAD, obesity. Course & Med Decision Making Course & Med Decision Making Patient is a 69-year-old female with a past medical history significant for insulin-dependent diabetes, stroke, TIAs and cardiovascular disease who presents to the emergency department confused and hypoglycemic with a blood sugar in the 30s. Vital signs notable for sinus bradycardia. EKG noted above with sinus bradycardia and no STEMI. Placed on the monitor with IV access established. On arrival patient received an amp of D50 which raised her blood sugar and brought her back to normal cognition with no focal neurologic deficits. Laboratory analysis notable for FLIP, hypoglycemia and hypokalemia. Started on IV fluid resuscitation with D5 and replaced potassium. Able to take p.o. whole food. Discussed all findings with patient and recommended admission to [place] for continued evaluation and treatment of her hypoglycemia and optimization before discharge. Patient grateful, verbalized understanding and agreed with plan of discharge. Dragon Disclaimer Dragon Disclaimer This electronic medical record was generated, in whole or in part, using a voice recognition dictation system. Departure Departure: Impression: Primary Impression: Hypoglycemia Additional Impressions: Hypokalemia FLIP (acute kidney injury) Disposition: ADMITTED INPATIENT Admitting Physician: Catalino Alvarado Condition: STABLE Referrals: MAXINE ECKERT MD (PCP) Problem Qualifiers FLORIAN SHANE MD Nov 20, 2020 18:32
[2020-11-20 18:43] LABS: BASO # 0.1 x10^3/uL (0.0-0.2); BASO % 1 % (0-3); EOS % 0 % (0-3); HEMATOCRIT 36.7 % (36.0-47.0); HEMOGLOBIN 12.6 g/dL (12.0-15.5); LYMPH # 1.9 x10^3/uL (1.0-4.8); LYMPH % 22 % (24-48); MEAN CORPUSCULAR HEMOGLOBIN 33 pg (25-35); MEAN CORPUSCULAR HGB CONC 34 g/dL (31-37); MEAN CORPUSCULAR VOLUME 95 fL (79-100); MONO % 12 % (0-9); NEUT # 5.7 x10^3uL (1.8-7.7); NEUT % 65 % (31-73); PLATELET COUNT 420 x10^3/uL (140-400); RED BLOOD COUNT 3.86 x10^6/uL (3.50-5.40); WHITE BLOOD COUNT 8.8 x10^3/uL (4.0-11.0)
[2020-11-20 19:01] LABS: ALBUMIN 3.2 g/dL (3.4-5.0); ALBUMIN/GLOBULIN RATIO 0.6 (1.0-1.7); CALCIUM 9.5 mg/dL (8.5-10.1); CREATININE 3.8 mg/dL (0.6-1.0); GFR 14.3; MAGNESIUM 2.6 mg/dL (1.8-2.4); TOTAL BILIRUBIN 0.5 mg/dL (0.2-1.0); TOTAL PROTEIN 8.4 g/dL (6.4-8.2)
--- NOTE | 2020-11-20 19:11 | RAD ---
XR CHEST 1V INDICATION: Reason: AMS, COVID POSITIVE / Spl. Instructions: / History: . COMPARISON STUDY: None. FINDINGS: Lungs: Low lung volume. Patchy bilateral opacities. Pleura: No pleural effusion or pneumothorax. Heart and Mediastinum: Cardiomegaly. CABG. The great vessels of the thorax are normal. IMPRESSION: Patchy bilateral opacities, consistent with patient's history of infection. Electronically signed by: Eder Paredes MD (11/20/2020 7:09 PM) [facility]
[2020-11-20] MEDS ORDERED: POTASSIUM CHLORIDE 20 MEQ TABLET.ER. PO ONE (19:45)
[2020-11-20] MEDS ORDERED: IV DEXTROSE 5% - 0.9 % NACL 1,000 ML IV ONE (20:15)
--- NOTE | 2020-11-20 22:52 | NUR ---
The patient, FAITH BUSTILLOS, 69 y/o, F admitted by KERRY LOPEZ MD, was given written information regarding hospital policies, unit procedures and contact persons. Valuables were checked and left with pt .
--- NOTE | 2020-11-20 23:17 | EKG ---
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
[2020-11-21 00:15] VITALS: BP 105/61
[2020-11-21 05:16] LABS: BILIRUBIN,URINE NEG (NEG); CLARITY,URINE HAZY; COLOR,URINE STRAW; GLUCOSE,URINE NEG (NEG)
[2020-11-21 05:17] LABS: BACTERIA,URINE FEW /HPF (0-FEW); NITRITE,URINE NEG (NEG); RBC,URINE OCC /HPF (0-2); SQUAMOUS EPITHELIAL CELL,UR OCC /LPF; UROBILINOGEN,URINE 0.2 mg/dL (0.2 mg/dL)
[2020-11-21 05:48] VITALS: BP 114/73
--- NOTE | 2020-11-21 05:48 | NUR ---
Nursing note: Pt unable to recall medications. Pt rested well, ate PO foods through shift. VS as noted in chart.
[2020-11-21 07:37] LABS: ALBUMIN 2.6 g/dL (3.4-5.0); ALBUMIN/GLOBULIN RATIO 0.6 (1.0-1.7); CALCIUM 9.2 mg/dL (8.5-10.1); CREATININE 3.2 mg/dL (0.6-1.0); GFR 17.5; POTASSIUM 3.9 mmol/L (3.5-5.1); TOTAL BILIRUBIN 0.3 mg/dL (0.2-1.0); TOTAL PROTEIN 7.2 g/dL (6.4-8.2)
[2020-11-21] MEDS ORDERED: FENO48TA4 PO (10:43)
[2020-11-21] MEDS ORDERED: DORZ10DR28 OP (10:43)
[2020-11-21] MEDS ORDERED: PANT40TA6 PO (10:43)
[2020-11-21] MEDS ORDERED: CLOP75TA57 PO (10:43)
[2020-11-21] MEDS ORDERED: CRESTOR40 MG PO (10:43)
[2020-11-21] MEDS ORDERED: BRIM5DRO4 EACHEYE (10:43)
[2020-11-21 11:36] VITALS: BP 101/54
[2020-11-21] MEDS ORDERED: DEXTROSE 50% 25 GM / 50ML DISP.SYRIN. IV PRN (15:45)
[2020-11-21] MEDS ORDERED: ACETAMINOPHEN 325 MG TABLET PO PRN (15:45)
[2020-11-21 16:03] VITALS: BP 136/62
--- NOTE | 2020-11-21 16:59 | HP ---
HISTORY OF PRESENT ILLNESS: The patient is a 69-year-old -[place] female patient who was brought to the Emergency Department with confusion and hypoglycemia with a blood sugar in the 30s. She apparently was diagnosed with COVID 5 days ago and stated that she had a decreased appetite. States she only ate half hotdog on the day of admission, but still took her Lantus 30 units lot the night before and Humalog the morning of admission. Her family found her sleepier than usual. The patient herself denied any headache, change in vision, chest pain, shortness of breath, abdominal pain, nausea, vomiting, dysuria, hematuria or blood in the stool or diarrhea. She was extensively investigated in the Emergency Room and apparently her lab work confirmed that she is hypoglycemic with a blood sugar of only 31 mg/dL. She was obviously treated accordingly. Her CT scan of the head showed that patient has mild bilateral periventricular white matter, hypodensities, likely chronic small vessel ischemic disease. She has an old infarct identified in the right frontoparietal region, similar to prior exam; however, there is no evidence of acute intracranial hemorrhage, no extraaxial fluid collection, no mass effect or midline shift. Her chest x-ray showed that the patient has low lung volumes, patchy bilateral opacities. No pleural effusion or pneumothorax. Does have cardiomegaly, evidence of coronary artery bypass graft surgery, great vessels and thorax were normal. Her lab work showed that her CBC was normal and unrevealing. Her prothrombin time, INR and APTT are normal. Her chemistry showed that she has obviously hypoglycemia, hypokalemia and chronic kidney disease. According to the patient, she is known to have stage III chronic kidney disease. Her most recent serum creatinine was on 10/30/2019, at that time, it was 2 and she was admitted with hypoglycemia, hypokalemia, acute on chronic kidney injury and obviously COVID-19 infection or pneumonia. PAST MEDICAL HISTORY: Significant for type 2 diabetes mellitus, coronary artery disease status post CABG on April 20, 2020. She also had right middle cerebral artery territory infarct with left-sided hemiplegia. Three days after her open heart surgery, she is known to have hypertension, hyperlipidemia, chronic kidney disease stage III, as well as breast cancer diagnosed in 2009, treated with lumpectomy, chemotherapy and radiation treatment. She is also known to have glaucoma. PAST SURGICAL HISTORY: Significant for coronary artery bypass surgery, right-sided lumpectomy. ALLERGIES: SHE IS ALLERGIC TO HYDROMORPHONE. MEDICATIONS: She is currently on the following medication: She is on Plavix 75 mg once a day, fenofibrate 48 mg once a day, Crestor 40 mg at bedtime, carvedilol 6.25 mg twice a day with meals, amlodipine besylate 10 mg daily. She is on brimonidine tartrate 1 drop to each eye twice a day, dorzolamide eyedrops one drop to both eyes twice a day and Protonix 40 mg daily. FAMILY HISTORY: She has five sisters, still alive. The diabetes and hypertension is very common in her family. Her father at age of 56 to complication of ulcer surgery and mother at age of 80 because of complication of end-stage renal disease, on hemodialysis. SOCIAL HISTORY: She is , has two sons, who live in [place] and [place]. She has never smoked, never drank alcohol or used any drugs. 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 PHYSICAL EXAMINATION: GENERAL: On arrival to the emergency room, she looked well and was clearly in no apparent respiratory distress. There was no pallor, jaundice, cyanosis. No lymphadenopathy, no thyromegaly, no jugular venous distention. No limb edema. VITAL SIGNS: Her heart rate was 55, blood pressure is 112/59, temperature 98.7, respiratory rate 20, and oxygen saturation was 93% on room air. HEAD, EYES, EARS, NOSE AND THROAT: Normocephalic, atraumatic. NECK: Supple. HEART: Showed normal first and second heart sounds, no gallop, rub or murmur. CHEST: Shows central trachea, equal bilateral chest expansion, air entry, vesicular breath sounds with bilateral basal crepitation, more so on the right than left. I could not really appreciate any rhonchi. ABDOMEN: Distended, soft, nontender. NEUROLOGIC: She does continue to have mild left-sided residual weakness with some ataxia involving her left upper extremity more than left lower extremity. LABORATORY DATA: On arrival showed a white cell count of 8900, hemoglobin 12.6, hematocrit 36.7, MCV 95 and platelet count of 120,000 with an automated differential showed 65% polymorphs, 22% lymphocytes and 12% monocytes. Her initial chemistry showed her serum sodium was 334, potassium 3, chloride 97, bicarbonate 23, anion gap of 14, BUN 68, creatinine 3.8. Estimated GFR was 49 mL per minute. Her glucose was 36, calcium was 9.5, magnesium 2.6. Total bilirubin, AST, ALT, alkaline phosphatase were normal. Total protein 8.4, albumin was 3.2. Her prothrombin time, INR and APTT are normal. Urinalysis was essentially unrevealing and her CT scan of the head showed that the patient has mild bilateral periventricular white matter hypodensities, likely chronic small vessel ischemic disease. She does have an old infarct identified in the right frontal and parietal regions similar to prior exam. She has no evidence of acute intracranial hemorrhage, no evidence of extraaxial fluid collection, no mass effect or midline shift, ventricular size is appropriate. The basal cisterns are patent. No fracture identified. Shabazz-white differentiation is preserved. Globes and orbits are within normal limits. Paranasal sinuses and mastoid cells are clear. Her chest x-ray showed that the patient has low lung volumes with patchy bilateral opacities. No pleural effusion or pneumothorax and has cardiomegaly, coronary artery bypass surgery. The great vessel and thorax are normal. ASSESSMENT AND PLAN: The patient was admitted with hypoglycemia, hypokalemia, acute on chronic kidney injury and COVID-19 infection. The patient was treated with IV fluid, potassium. I will reconcile all her medications and we will continue obviously with IV fluid and continue to monitor her kidney function is at baseline was only 2 mg and she came with a creatinine of 3.8. We will hold her Lantus and Humalog, started on insulin sliding scale. SAUD DR: Vikas TID: [id number]
[2020-11-21] MEDS: INSULIN LISPRO 300 UNITS/3 ML VIAL. SQ SCH (17:00)
--- NOTE | 2020-11-21 17:12 | NUR ---
THIS NURSE CALLED [facility] TO VERIFY HOME MEDICATIONS. PT STARTED ON NS @100MLS/HR. DR. HOPKINS ORDERED PT/OT FOR PT. PT ASKED FOR HELP TO THE BATHROOM ONCE. PT ON ROOM AIR FOR THE DAY. PT HAS AN OCCASIONAL PVC ON HER EKG STRIP. PT BLOOD SUGARS 200 OR LESS. PT STARTED ON SLIDING SCALE INSULIN.
[2020-11-21] MEDS: CARVEDILOL 6.25 MG TABLET PO SCH (17:23)
[2020-11-21] MEDS: IV NORMAL SALINE 1,000ML 1,000 ML IV SCH (17:24)
[2020-11-21 21:17] VITALS: BP 121/83
--- NOTE | 2020-11-21 21:24 | PN ---
DATE: 11/21/2020 SUBJECTIVE: The patient is resting, slightly propped up in bed, in no apparent distress. On questioning her, she continued to feel somewhat lightheaded and dizzy, but denied any other complaint other than occasional cough, which is mostly nonproductive, continued to have some anorexia, but denied any other complaint. PHYSICAL EXAMINATION: GENERAL: When I examined her this afternoon, she looked well and was clearly in no apparent respiratory distress. There is no pallor, jaundice, cyanosis or thyromegaly. No jugular venous distention. No limb edema. VITAL SIGNS: Her heart rate was 59, blood pressure is 101/54, temperature 98.2, respiratory rate was 18 and oxygen saturation was 97% on 2 liters of oxygen. She was doing 94% on room air. HEAD, EYES, EARS, NOSE, AND THROAT: Normocephalic, atraumatic. NECK: Supple. HEART: Showed normal first heart sound, no gallop, rub or murmur. CHEST: Showed central trachea, equal bilateral chest expansion, air entry, vesicular breath sounds with bilateral basal crepitation, more so on the left than right. I could not appreciate any rhonchi. ABDOMEN: Distended, soft, nontender. NEUROLOGIC: She was definitely awake, alert, responding appropriately. All cranial nerves intact. She moves extremities without difficulty. She does have some residual weakness more than left lower extremity. She ambulates with a quad cane. Her intake over the last 24 hours I am not sure this number is right saying that her intake was 9300 from what is written in the emergency room. She probably received a liter of D5 half normal together with potassium. LABORATORY DATA: This morning showed a serum sodium 136, potassium 3.9, chloride 101, bicarbonate 23, anion gap of 12, BUN 61, creatinine 3.2. Estimated GFR was 17 mL per minute. Her glucose was 115, calcium was 9.2. Total bilirubin, AST, ALT, alkaline phosphatase were normal. Total protein 7.2, albumin was 2.6. ASSESSMENT AND PLAN: 1. In summary, this is a 69-year-old female patient who presented to the Emergency Room with altered mental status and excessive sleepiness. She was found to be hypoglycemic, likely due to worsening kidney function and continued poor oral intake and obviously continued use of her Lantus and Humalog. 2. COVID-19 infection with anorexia and poor oral intake, causing acute on chronic kidney injury. Creatinine baseline is 2 and when she came yesterday it was 3.8. She did have also hypokalemia. The patient did not receive the coronavirus vaccine, but she does not seem to be symptomatic from her coronavirus infection. My plan is to reconcile all her medications. I did start her on normal saline at 100 mL per hour. Her baseline is 2 mg/dL and most recent creatinine was on 10/29/2020, it was at that time 2 mg/dL. I will start her on insulin sliding scale before meals, given that her kidney function continued to be abnormal and definitely higher than her baseline and therefore probably needs to have her eventually her Lantus and Humalog insulin to be cut down if her kidney function has not improved further. I will repeat her labs again tomorrow to make sure that her creatinine has returned back to normal. ERVIN DR: Vikas TID: [id number]
[2020-11-21] MEDS: BRIMONIDINE 0.2% OPHTH SOLUTION 5ML BOTTLE. OU SCH (21:27)
[2020-11-21] MEDS: DORZOLAMIDE 2% OPHTH SOLUTION 10ML BOTTLE. OU SCH (21:27)
[2020-11-21] MEDS: NYSTATIN TOPICAL POWDER 15GM BOTTLE. TP SCH (21:27)
[2020-11-22] MEDS: IV NORMAL SALINE 1,000ML 1,000 ML IV SCH (02:35)
[2020-11-22 06:13] VITALS: BP 113/54
[2020-11-22 07:34] LABS: CALCIUM 9.1 mg/dL (8.5-10.1); CREATININE 2.2 mg/dL (0.6-1.0); GFR 26.9; POTASSIUM 3.9 mmol/L (3.5-5.1)
[2020-11-22] MEDS: INSULIN LISPRO 300 UNITS/3 ML VIAL. SQ SCH (08:00)
[2020-11-22] MEDS: BRIMONIDINE 0.2% OPHTH SOLUTION 5ML BOTTLE. OU SCH (08:40)
[2020-11-22] MEDS: DORZOLAMIDE 2% OPHTH SOLUTION 10ML BOTTLE. OU SCH (08:40)
[2020-11-22 08:41] VITALS: BP 113/54
[2020-11-22] MEDS: CARVEDILOL 6.25 MG TABLET PO SCH (08:41)
[2020-11-22] MEDS: NYSTATIN TOPICAL POWDER 15GM BOTTLE. TP SCH (08:41)
[2020-11-22] MEDS ORDERED: PANTOPRAZOLE 40 MG TABLET. PO SCH (09:00)
[2020-11-22] MEDS ORDERED: amLODIPine BESYLATE 10 MG TABLET PO SCH (09:00)
[2020-11-22] MEDS ORDERED: ATORVASTATIN CALCIUM 20 MG TABLET PO SCH (09:00)
[2020-11-22] MEDS ORDERED: CLOPIDOGREL BISULFATE 75 MG TABLET PO SCH (09:00)
[2020-11-22] MEDS ORDERED: FENOFIBRATE NANOCRYSTALLIZED 48 MG TABLET PO SCH (09:00)
--- NOTE | 2020-11-22 09:32 | DS ---
DATE OF DISCHARGE: 11/22/2020 ATTENDING PHYSICIAN: Dr. Herrera. FINAL DISCHARGE DIAGNOSES: 1. Symptomatic hypoglycemia, resolved. 2. Mgngg-do-xxsmdia kidney injury, improved. 3. Mild dehydration. 4. Insulin-dependent diabetes. 5. Known coronary artery disease with previous bypass surgery. 6. History of right breast lumpectomy. 7. 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 8. Essential hypertension. HISTORY AND PHYSICAL: The patient is a 69-year-old female diabetic who did not feel well, was not eating much. She took her insulin and did not eat. She had symptomatic hypoglycemia with the ED blood sugar of 31 mg/dL. She was admitted for further treatment and evaluation. Creatinine was elevated at 3.8. Her baseline is somewhere around 2.0 mg/dL. PHYSICAL EXAMINATION: Please see the dictated note. PERTINENT LABORATORY AND X-RAY STUDIES: Hemoglobin on admission was 12.6 g/dL. White count 8800. Subsequent blood sugars were drawn, they were up to 159, 148, 154, 109 and 109. She was improved. Creatinine, which had been elevated, is down to 2.2 mg/dL with a BUN of 40. This will be followed up as an outpatient. Again, her baseline is close to this number. COURSE IN THE HOSPITAL: The patient was admitted. Her insulin was held. Diet was advanced. She had gentle IV hydration and she was doing well. By the third hospital day, her vital signs were quite stable. She was alert. Her blood pressure was 113 mmHg, oxygen saturation 93% on room air and she was afebrile. She is discharged home. I recommended no changes in her medicines. She will follow up with Dr. Regi Eckert at the scheduled time. She will continue her amlodipine 10 mg daily, brimonidine eyedrops, Coreg 25 mg b.i.d., Plavix 75 mg daily, fenofibrate daily, Protonix, and Crestor dose is unchanged. She was discharged then from our hospital in stable condition with explicit drug and followup care. She will follow up with Dr. Eckert. Total discharge time spent 39 minutes. STEPHEN/ARSH CHEN: STEPHEN/romina TID: [id number] CC: REGI ECKERT MD
--- NOTE | 2020-11-22 10:26 | NUR ---
PT DISCHARGED TO HOME VIA PRIVATE VEHICLE AND FAMILY. PT WHEELED TO THE FRONT DOOR WITH STAFF. PT HAD BELONGINGS AND A MASK ON. PT STABLE. 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
== END 2020-11-22 11:09 | disposition home or self-care (01) | DRG 637 ==
LOC: ER 18:08 → 1 SOUTH 20:07
PROVIDERS: ADMIT Hospitalist; ATTEND Hospitalist
DX: E11.649 Type 2 diabetes mellitus with hypoglycemia without coma (principal); G93.41 Metabolic encephalopathy; I69.354 Hemiplegia and hemiparesis following cerebral infarction affecting left non-dominant side; E86.0 Dehydration; N17.0 Acute kidney failure with tubular necrosis; I12.9 Hypertensive chronic kidney disease with stage 1 through stage 4 chronic kidney disease, or unspecified chronic kidney disease; E11.22 Type 2 diabetes mellitus with diabetic chronic kidney disease; N18.30 Chronic kidney disease, stage 3 unspecified; E78.00 Pure hypercholesterolemia, unspecified; E78.5 Hyperlipidemia, unspecified; I25.10 Atherosclerotic heart disease of native coronary artery without angina pectoris; E87.6 Hypokalemia; F41.9 Anxiety disorder, unspecified; M19.90 Unspecified osteoarthritis, unspecified site; Z95.1 Presence of aortocoronary bypass graft; Z85.3 Personal history of malignant neoplasm of breast; Z79.4 Long term (current) use of insulin; Z79.02 Long term (current) use of antithrombotics/antiplatelets; Z88.8 Allergy status to other drugs, medicaments and biological substances
CPT/HCPCS: 36415; 70450; 71045; 80048; 80053; 81001; 82947; 83735; 84484; 85025; 85610; 85730; 87086; 93005; 96361; 96374; J1815; J7042; 99285-25; J7030